=== PATIENT | male | born 1955 | race Caucasian/White ===

== ENCOUNTER 2020-08-15 16:08 | Outpatient (CLI) | payer MEDICARE, SELFPAY ==
[2020-08-15 17:06] LABS: Influenza Control Valid (Valid); SARS-CoV-2 Ag Negative (Negative)
== END 2020-08-15 16:09 | disposition home or self-care (01) ==
LOC: CHSLAB 16:12
PROVIDERS: PCP Internal Medicine; Visit Provider Internal Medicine
DX: R51.9 Headache, unspecified (principal); R68.83 Chills (without fever); R53.83 Other fatigue; Z20.828 Contact with and (suspected) exposure to other viral communicable diseases
CPT/HCPCS: 87426; 87804

== ENCOUNTER 2020-08-16 14:12 | Outpatient (CLI) | payer MEDICARE, SELFPAY ==
--- NOTE | ~2020-08-16 | XR_ITS ---
EXAMINATION: XR chest 2V DATE: 08/16/2020 14:38 INDICATION: Chills, headache, fever, dyspnea. TECHNIQUE: Frontal and lateral views of the chest were obtained. COMPARISON: Chest 2 views 09/08/2016 FINDINGS: Scattered calcified pulmonary nodules and calcified hilar and mediastinal lymph nodes are c onsistent with old granulomatous disease. There is linear scarring in anterior segment right upper lo be. No pleural effusion or pneumothorax. The heart size is normal. There are surgical clips in the ab domen. IMPRESSION: 1. Stable mild scarring at right lung. Reviewed, dictated and finalized at location A. [employer]
[2020-08-16 14:33] LABS: Basophils Absolute Auto 0.02 K/mm3 (0.00-0.10); Basophils Percent Auto 0.3 % (0.0-1.0); Eosinophils Percent Auto 2.6 % (1.0-6.0); Hematocrit 43.9 % (40.0-54.0); Hemoglobin 14.3 g/dL (14.0-18.0); Immature Granulocyte Absolute 0.04 K/mm3 (0.00-0.00); Immature Granulocyte Percent A 0.5 % (0.0-0.0); Lymphocytes Absolute Auto 1.06 K/mm3 (1.10-4.50); Lymphocytes Percent Auto 13.9 % (18.0-42.0); Mean Corpuscular HGB Conc 32.6 g/dL (32.0-36.0); Mean Corpuscular Hemoglobin 30.2 pg (27.0-31.0); Mean Corpuscular Volume 92.8 fL (78.0-102.0); Mean Platelet Volume 9.5 fl (8.7-11.0); Monocytes Absolute Auto 0.41 K/mm3 (0.10-0.90); Monocytes Percent Auto 5.4 % (2.0-11.0); Neutrophils Absolute Auto 5.9 K/mm3 (1.7-7.2); Neutrophils Percent Auto 77.3 % (50.0-70.0); Platelet Count Result 242 K/mm3 (150-420); Red Blood Count 4.73 M/mm3 (4.70-6.10); Red Cell Distribution Width 12.9 % (11.6-14.4); White Blood Count 7.6 K/mm3 (4.8-10.8)
[2020-08-16 14:39] LABS: Add Urine Microscopic? NO; Appearance Urine Clear (Clear); Bilirubin Urine Negative (Negative); Blood Urine Negative (Negative); Color Urine Yellow (Yellow); Glucose Urine UA Negative (Negative); Ketones Urine Negative (Negative); Leukocyte Esterase Ur Negative (Negative); Nitrate Urine Negative (Negative); Protein Urine Negative (Negative); Urobilinogen Urine 0.2 mg/dL (0.2-1.0)
[2020-08-16 15:06] LABS: Alanine Aminotransferase 34 U/L (16-63); Albumin Level 3.7 g/dL (3.4-5.0); Alkaline Phosphatase 63 U/L (46-116); Anion Gap 9 mmol/L (8-16); Aspartate Amino Transferase 15 U/L (15-37); Bilirubin,Total 0.2 mg/dL (0.00-1.00); Blood Urea Nitrogen 18 mg/dL (7-18); Calcium 9.4 mg/dL (8.5-10.1); Carbon Dioxide 28 mmol/L (21-32); Chloride 107 mmol/L (98-108); Estimated Glomerular Filt Rate 51; Glucose 110 mg/dL (70-99); Osmolality Calculated 300 mOsm/kg (285-295); Prostate Specific Antigen 2.2 ng/mL (< OR = 4.0); Sodium 144 mmol/L (136-145); Total Protein 6.9 g/dL (6.4-8.2)
== END 2020-08-16 14:13 | disposition home or self-care (01) ==
PROVIDERS: PCP Internal Medicine; Visit Provider Internal Medicine
DX: R50.9 Fever, unspecified (principal); R51.9 Headache, unspecified; R30.0 Dysuria; N42.9 Disorder of prostate, unspecified
CPT/HCPCS: 36415; 71046; 80053; 81003; 84153; 85025; 87086

== ENCOUNTER 2024-04-06 09:43 | Outpatient (CLI) | payer MEDICARE, SELFPAY ==
--- NOTE | ~2024-04-06 | XR_ITS ---
XR ankle LT min 3V Ordering provider: Denis Best MD History: . LEFT ANKLE PAIN, DYSPNEA . Comparison: November 09, 2006 FINDINGS: BONES: No acute fracture or dislocation. Calcaneus spur. Ossification of the insertion of the tendo Achilles. JOINT SPACES: The ankle mortise is normal. SOFT TISSUES: Soft tissue swelling over the lateral malleolus. IMPRESSION: No acute osseous abnormality left ankle. Reviewed, dictated and finalized at location A.
--- NOTE | ~2024-04-06 | XR_ITS ---
XR chest 2V 04/06/2024 10:18 Indication: Dyspnea Procedure: 2 view chest Comparison: Comparison to multiple prior studies sequentially, with oldest reviewed study dated 05/2013. Findings: Cardiomegaly. No focal air space disease, pulmonary edema, pleural effusion or suspected pn eumothorax. No acute osseous abnormality. Impression: 1: No acute cardiopulmonary disease. Reviewed, dictated and finalized at location B. Impression: 1: No acute cardiopulmonary disease.
== END 2024-04-06 09:44 | disposition home or self-care (01) ==
PROVIDERS: PCP Internal Medicine; Visit Provider Internal Medicine
DX: R06.00 Dyspnea, unspecified (principal); M25.572 Pain in left ankle and joints of left foot
CPT/HCPCS: 71046; 73610

== ENCOUNTER 2024-04-11 10:33 | Outpatient (RCR) | payer MEDICARE, SELFPAY ==
--- NOTE | 2024-04-11 11:34 | OPREHPOC ---
Outpatient Therapy Plan of Care This is a Multidisciplinary Plan of Care that may contain components documented by all disciplines (PT, OT, and ST.) PT Problem 1 PT Problem #1 Knowledge Deficit PT Goal 1 Goal 1. independent and compliant with HEP Target Visit 6 PT Problem 2 PT Problem #2 Impaired Endurance PT Goal 1 Goal 1. patient to complete 6 minute walk test without sitting rest Target Visit 12 PT Problem 3 PT Problem #3 Impaired Functional Mobil PT Goal 1 Goal 1. patient to ambulate 600ft or more in 6 minute walk test 2. patient to complete 2 minute step tap test for 50 steps or better 3. patient to complete 10 minutes on bike without stopping to rest 4. oswestry to display less than 40% functional deficits Target Visit 12
--- NOTE | 2024-04-11 11:34 | PTOPEVAL1 ---
Assessment and note entered by JT File, PT Evaluation Information Assessment Status Evaluation Diagnosis generalized deconditioning ICD-10 Condition Codes (PT) Pain in low back M54.50,Weakness R53.1 Onset 04/06/24 Subjective Information patient reports he is running out of energy and air when he is up and moving. he reports he cannot walk far. he reports he has had no falls. he reports he does have pain in the lower back after being up for a while. he reports he feels he is only able to make is 100-150ft prior to running out of air. he reports he has been declining in function for the past 3-4 months. he reports he is gradually getting worse. he reports he is going to have an EKG soon. he reports he does have a history of sarcoidosis in the past. he reports he is not very active daily. he reports his mobility for the day depends on how he feels in the morning . Reported Pain Level Pain Score 5: Self Report Assessment PT Clinical Summary mr. wong is a 68 yo man who presents to skilled PT services for evaluation of generalized deconditioning and chronic lower back pain. patient is obese and presents today with deficits in endurance. he is limited to under 2 minutes of walking prior to needing sitting rest due to RPE. continued skilled PT is indicated to improve patients endurance and functional activity performance to provide improved robert and better quality of life/functional activity performance. Plan of Care Interventions Gait Training,Neuro Re-education,Patient/Caregiver Educati,Therapeutic Activities,Therapeutic Exercise PT Services Indicated Yes Treatment Frequency and 3x weekly for 12 visits Duration These treatments will address the objective and functional deficits as defined above. The patient will be advanced safely and appropriately in order for the patient to progress towards his/her prior level of function. Additional exercises will be introduced and as well as a comprehensive home exercise program upon discharge, if needed, ?to ensure carryover of functional gains achieved in the clinic. This treatment plan has been reviewed and agreement upon by the patient.
--- NOTE | 2024-05-10 11:44 | OPREHPOC ---
Outpatient Therapy Plan of Care This is a Multidisciplinary Plan of Care that may contain components documented by all disciplines (PT, OT, and ST.) PT Problem 1 PT Problem #1 Knowledge Deficit PT Goal 1 Goal / Goal Update 1. independent and compliant with HEP Target Visit 6 Progress Met PT Problem 2 PT Problem #2 Impaired Endurance PT Goal 1 Goal / Goal Update 1. patient to complete 6 minute walk test without sitting rest Target Visit 12 Progress Not Met PT Problem 3 PT Problem #3 Impaired Functional Mobil PT Goal 1 Goal / Goal Update 1. patient to ambulate 600ft or more in 6 minute walk test 2. patient to complete 2 minute step tap test for 50 steps or better. met 3. patient to complete 10 minutes on bike without stopping to rest. met 4. oswestry to display less than 40% functional deficits Target Visit 12 Progress Partially Met
--- NOTE | 2024-05-10 11:45 | PTOPPROGNS ---
Assessment and note entered by JT File, PT Evaluation Information Assessment Status Progress Diagnosis generalized deconditioning ICD-10 Condition Codes (PT) Pain in low back M54.50,Weakness R53.1 Onset 04/06/24 Subjective Information patient reports he feels Alright today. he reports he had a stress test yesterday, but reports he did not finish and has to finish his stress test tomorrow. patient reports he does feel he is improved since starting therapy. Assessment PT Clinical Summary mr. wong presents to skilled PT services for his 10th skilled PT visit today. he displays continued deficits in endurance. however, he has show some improvements in ambulation distance/time and step test time. continued skilled PT is indicated to further work on achievement of goals for patient to become more engaged and functional at home and in the community. Plan of Care Interventions Gait Training,Neuro Re-education,Patient/Caregiver Educati,Therapeutic Activities,Therapeutic Exercise PT Services Indicated Yes Treatment Frequency and continue skilled PT per initial POC Duration These treatments will address the objective and functional deficits as defined above. The patient will be advanced safely and appropriately in order for the patient to progress towards his/her prior level of function. Additional exercises will be introduced and as well as a comprehensive home exercise program upon discharge, if needed, ?to ensure carryover of functional gains achieved in the clinic. This treatment plan has been reviewed and agreement upon by the patient.
--- NOTE | 2024-05-13 10:46 | OPREHPOC ---
Outpatient Therapy Plan of Care This is a Multidisciplinary Plan of Care that may contain components documented by all disciplines (PT, OT, and ST.) PT Problem 1 PT Problem #1 Knowledge Deficit PT Goal 1 Goal / Goal Update 1. independent and compliant with HEP Target Visit 6 Progress Met PT Problem 2 PT Problem #2 Impaired Endurance PT Goal 1 Goal / Goal Update 1. patient to complete 6 minute walk test without sitting rest Target Visit 12 Progress Not Met PT Problem 3 PT Problem #3 Impaired Functional Mobil PT Goal 1 Goal / Goal Update 1. patient to ambulate 600ft or more in 6 minute walk test. not met 2. patient to complete 2 minute step tap test for 50 steps or better. met 3. patient to complete 10 minutes on bike without stopping to rest. met 4. oswestry to display less than 40% functional deficits Target Visit 12 Progress Partially Met
--- NOTE | 2024-05-13 10:46 | PTOPDC ---
Assessment and note entered by JT File, PT Evaluation Information Assessment Status Discharge Diagnosis generalized deconditioning ICD-10 Condition Codes (PT) Pain in low back M54.50,Weakness R53.1 Onset 04/06/24 Subjective Information patient reports he has finished his stress testing this week, and reports he is all good. he reports he has no pain today. he reports he still has difficulty walking. he reports he is limited due to SOA when walking. he reports he is better that he was prior to starting therapy, but is still limited. 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 he reports he is not currently walking for exercise at this time. he reports he does believe he can begin walking for the goal of exercise at home. he reports he currently does perform activities at home in short bouts of standing, walking, and sitting. he reports he is fine with his current status, and believes he can continue on his own at home at this time. Reported Pain Level Pain Score 0: Self Report Assessment PT Clinical Summary mr. wong presents to skilled PT today for his 12th skilled PT visit. he presents with continued deficits in ambulation endurance, but displays achievement of goals for step test and bike exercise. he reports feeling good with his current status, and wanting to continue on his own at this time. he was educated in progression of walking for exercise at home, and will be DC'd from skilled PT today. Plan of Care PT Services Indicated Yes
== END 2024-05-13 10:15 | disposition home or self-care (01) ==
LOC: CHSPT 10:33
PROVIDERS: PCP Internal Medicine; Visit Provider Internal Medicine
DX: M54.50 Low back pain, unspecified (principal); R53.1 Weakness
CPT/HCPCS: 97110; 97161; 97530

== ENCOUNTER 2024-04-28 11:55 | Outpatient (CLI) | payer MEDICARE, SELFPAY ==
--- NOTE | 2024-04-28 12:01 | ECHO_ITS ---
Patient Info Name: Zechariah Jenkins Age: 68 years : 1955 Gender: Male Ht: 67 in Wt: 350 lbs BSA: 2.84 m2 HR: 75 bpm BP: 159 / 75 mmHg Heart Rhythm: Sinus Rhythm Technical Quality: Poor Exam Date: 04/28/2024 12:12 PM Exam Location: Echo Lab Patient Status: Outpatient Admit Date: 04/28/2024 Staff Ordering Physician: Denis Best MD Immigration Specialist: Jaimie Espinal RDCS Attending Provider: Denis Best MD Referring Physician: Nasir ESPARZA; Exam Type: CA echo dop color flow w con Study Info Indications - CHF Complete two-dimensional, color flow and Doppler transthoracic echocardiogram is performed with contrast to opacify the left ventricle and to improve the deliniation of the left ventricle endocardial borders. Reason for Poor Study: poor echocardiographic windows Summary 1. Definity contrast administered improved wall motion interpretation. 2. Left ventricular chamber dimension is normal. 3. Left ventricular systolic function is normal, estimated at 60-65%. 4. There is mild concentric increased left ventricular wall thickness. 5. The left ventricular diastolic function is grade III diastolic dysfunction. 6. E/e' 13 is mildly elevated. 7. There is trace tricuspid valve regurgitation. 8. No pulmonary hypertension, estimated pulmonary arterial systolic pressure is 13 mmHg. Left Ventricle E/e' 13 is mildly elevated. Definity contrast administered improved wall motion interpretation. Left ventricular chamber dimension is normal. Left ventricular systolic function is normal, estimated at 60-65%. There is mild concentric increased left ventricular wall thickness. The left ventricular diastolic function is grade III diastolic dysfunction. Right Ventricle Right ventricular systolic function is normal and with normal TAPSE 3.3 cm. Right ventricular chamber dimension is normal. Left Atria Left atrial chamber dimension is normal. Right Atria Right atrial chamber dimension is normal. Aortic Valve The aortic valve is not well visualized. Cannot determine number of aortic valve leaflets. There is no aortic valve stenosis. There is no aortic valve regurgitation. Pulmonic Valve There is no pulmonic regurgitation. Mitral Valve There is no mitral valve stenosis. There is no mitral valve regurgitation. Tricuspid Valve There is trace tricuspid valve regurgitation. No pulmonary hypertension, estimated pulmonary arterial systolic pressure is 13 mmHg. Pericardium/Pleural There is no pericardial effusion. Inferior Vena Cava Normal inferior vena cava with >50% collapse upon inspiration consistent with normal right atrial pressure, 5 mmHg. Aorta The aortic root size at the sinus of Valsalva is normal. Left Ventricular Outflow Tract Name Value Normal LVOT 2D LVOT Diameter 2.24 cm LVOT Doppler LVOT Peak Velocity 136.91 cm/s LVOT Peak Gradient 7 mmHg LVOT Mean Gradient 5 mmHg LVOT VTI 29.34 cm LVOT VTI/AV VTI Ratio 0.97 LVOT Stroke Volume 115.44 ml Pulmonic Valve
== END 2024-04-28 11:56 | disposition home or self-care (01) ==
LOC: CHSIMG 11:58
PROVIDERS: PCP Internal Medicine; Visit Provider Internal Medicine
DX: I50.9 Heart failure, unspecified (principal)
CPT/HCPCS: C8929

== ENCOUNTER 2024-05-09 09:01 | Outpatient (CLI) | payer MEDICARE, SELFPAY ==
--- NOTE | 2024-05-09 09:06 | EST_ITS ---
Patient Info Name: Zechariah Jenkins Age: 68 years : 1955 Gender: Male Ht: 66 in Wt: 358 lbs BSA: 2.85 m2 HR: 63 bpm BP: 108 / 61 mmHg Heart Rhythm: Sinus Rhythm Technical Quality: Good Exam Date: 05/09/2024 10:41 AM Exam Location: Echo Lab Patient Status: Outpatient Admit Date: 05/09/2024 Staff Ordering Physician: Denis Best MD Attending Provider: Denis Best MD Exam Type: CA stress lizzette w NM Study Info A regadenoson stress test was performed. History/Risk Factors Hypertension: Yes Obesity: Yes Summary 1. 1. Negative lexiscan stress test for ischemic ST changes by ECG criteria. 2. 2. Stable hemodynamics throughout the test. 3. 3. Nuclear scan to follow and will be reported separately. Please correlate with it. Protocol: LEXISCAN Stress ECG Details Stage: REST Duration (min): 1 min : 38 sec HR (bpm): 64 SBP (mmHg): --- DBP (mmHg): --- Stage: REST Duration (min): 5 min : 43 sec HR (bpm): 63 SBP (mmHg): --- DBP (mmHg): --- Stage: STAGE 1 Duration (min): 0 min : 52 sec HR (bpm): 78 SBP (mmHg): --- DBP (mmHg): --- Stage: RECOVERY Duration (min): 0 min : 7 sec HR (bpm): 84 SBP (mmHg): --- DBP (mmHg): --- Stage: RECOVERY Duration (min): 1 min : 7 sec HR (bpm): 92 SBP (mmHg): --- DBP (mmHg): --- Stage: RECOVERY Duration (min): 2 min : 7 sec HR (bpm): 90 SBP (mmHg): 142 DBP (mmHg): 70 Stage: RECOVERY Duration (min): 3 min : 7 sec HR (bpm): 88 SBP (mmHg): 138 DBP (mmHg): 64 Stage: RECOVERY Duration (min): 4 min : 7 sec HR (bpm): 85 SBP (mmHg): 132 DBP (mmHg): 56 Stage: RECOVERY Duration (min): 5 min : 7 sec HR (bpm): 84 SBP (mmHg): 124 DBP (mmHg): 71 Stage: RECOVERY Duration (min): 6 min : 7 sec HR (bpm): 84 SBP (mmHg): 119 DBP (mmHg): 69 Stage: RECOVERY Duration (min): 6 min : 21 sec HR (bpm): 83 SBP (mmHg): 119 DBP (mmHg): 69 Rest HR: 63 bpm Peak HR: 96 bpm Rest Sys BP: 130 mmHg Peak Sys BP: 142 mmHg Max Pred HR: 152 bpm % Max Pred HR: 63 % Target HR: 129 bpm Max RPP: 13,632 bpm*mmHg BP Response: Normal blood pressure response Termination Reason: Completed Protocol Cardiac Symptoms: rt sided jaw pain Total Time: 0 min : 52 sec Rest Garcia BP: 72 mmHg Peak Garcia BP: 70 mmHg Total Dose: 0.4 mg Resting ECG Sinus rhythm, anteroseptal infarct, age indeterminate. Stress ECG No abnormal ST/T wave changes. Arrhythmias Occasional PVCs. Report Signatures
--- NOTE | 2024-05-12 08:00 | WPDCARIOSTRE ---
Nuclear Stress Test INDICATIONS Indications: Dyspnea PROCEDURE Procedure Performed: Myocardial Perf Spect-Multi Procedure: Patient underwent a lexiscan stress test and immediately was injected with 30 mCi of cardiolyte. Multiple tomographic images were obtained. These are of fair quality. There is evidence of a large size, severe anterior and large size, severe inferior perfusion defects with stress imaging. A separate resting study on a different day was performed after patient was injected with 29.0 mCi of cardiolyte. Multiple tomographic images were obtained. These are of fair quality. There is evidence of a large size, severe anterior and large size, severe inferior perfusion defects with rest imaging. CONCLUSION Conclusion: 1. Myocardial perfusion imaging demonstrates a fixed large anterior and inferior perfusion defects with stress and rest imaging suggestive of breast and diaphragmatic attenuation artifacts. 2. No evidence of reversible ischemia. 3. Left ventriculogram demonstrates normal measured ejection fraction of 63% with no wall motion abnormalities. 4. TID score 1.03 is normal.
== END 2024-05-09 09:02 | disposition home or self-care (01) ==
PROVIDERS: PCP Internal Medicine; Visit Provider Internal Medicine
DX: I10 Essential (primary) hypertension (principal); R06.00 Dyspnea, unspecified
CPT/HCPCS: 78452; 93017; A9502; J2785

== ENCOUNTER 2024-07-27 09:07 | Outpatient (CLI) | payer MEDICARE, SELFPAY ==
[2024-07-27] VITALS (8 sets, daily range): PULSE 66–90; O2SAT 95–97
--- NOTE | 2024-07-27 10:35 | SIXMINWLK ---
Six Minute Walk Test PFT: Six Minute Walk Start: 07/27/24 10:25 Freq: Status: Active Protocol: RPE Activity Type Activity Date Activity User E-sign Co-sign Detail Recorded Client Recorded Date Recorded By Document 07/27/24 09:18 RES [id number] 07/27/24 10:29 RES Document 07/27/24 09:20 RES [id number] 07/27/24 10:29 RES Document 07/27/24 09:21 RES [id number] 07/27/24 10:34 RES Document 07/27/24 09:22 RES [id number] 07/27/24 10:34 RES Document 07/27/24 09:23 RES [id number] 07/27/24 10:34 RES Document 07/27/24 09:24 RES [id number] 07/27/24 10:34 RES Document 07/27/24 09:25 RES [id number] 07/27/24 10:34 RES Document 07/27/24 09:26 RES [id number] 07/27/24 10:34 RES 07/27/24 07/27/24 07/27/24 09:18 09:20 09:21 Six Minute Walk Gender M M M Age 68 68 68 Race White White White Test Phase Resting Exercise Exercise Oxygen Delivery Room Air Room Air Room Air Fraction of Inspired Oxygen (%) 21 21 21 Pulse Oximetry (90-100 %) 96 97 97 Pulse Rate (60-100 beats/min) 66 72 78 Activity Tolerance Good Good Good Rating of Perceived Dyspnea (PD) +1 Mild, +1 Mild, +1 Mild, Noticeable to Noticeable to Noticeable to the Participant the Participant the Participant but Not to an but Not to an but Not to an Observer Observer Observer Rate of Perceived Exertion (1) Very Light (2-3) Light (4-6) Moderate Activity Activity Activity Number of Complete Laps (1 Lap = 100 4 Feet) Total Distance Walked (Feet) 400 Total Distance Walked (Meters) 121.91 Stopped/Paused During Testing - Enter Yes Comment if Yes Symptoms at End of Test Leg/Hip Pain Other Symptoms At End of Test Patient had to stop a few times for about 30 sec. due to leg pain/ weakness 07/27/24 07/27/24 07/27/24 09:22 09:23 09:24 Six Minute Walk Gender M M M Age [age] Race White White White Test Phase Exercise Exercise Exercise Oxygen Delivery Room Air Room Air Room Air Fraction of Inspired Oxygen (%) 21 21 21 Pulse Oximetry (90-100 %) 95 95 96 Pulse Rate (60-100 beats/min) 90 88 80 Activity Tolerance Fair Fair Fair Rating of Perceived Dyspnea (PD) +3 Moderate +3 Moderate +3 Moderate Difficulty, But Difficulty, But Difficulty, But Can Continue Can Continue Can Continue Rate of Perceived Exertion (4-6) Moderate (4-6) Moderate (4-6) Moderate Activity Activity Activity Number of Complete Laps (1 Lap = 100 Feet) Total Distance Walked (Feet) Total Distance Walked (Meters) Stopped/Paused During Testing - Enter Comment if Yes Symptoms at End of Test Other Symptoms At End of Test 07/27/24 07/27/24 09:25 09:26 Six Minute Walk Gender M M Age [age] Race White White Test Phase Exercise Resting Oxygen Delivery Room Air Room Air Fraction of Inspired Oxygen (%) 21 21 Pulse Oximetry (90-100 %) 96 97 Pulse Rate (60-100 beats/min) 87 80 Activity Tolerance Fair Good Rating of Perceived Dyspnea (PD) +3 Moderate +1 Mild, Difficulty, But Noticeable to Can Continue the Participant but Not to an Observer Rate of Perceived Exertion (4-6) Moderate (1) Very Light Activity Activity Number of Complete Laps (1 Lap = 100 Feet) Total Distance Walked (Feet) Total Distance Walked (Meters) Stopped/Paused During Testing - Enter Comment if Yes Symptoms at End of Test Other Symptoms At End of Test
--- NOTE | 2024-07-27 19:58 | WPDSIXMINUTE ---
Six Minute Walk Procedure Procedure Performed Pulmonary Stress Test (6 min walk) Six Minute Walk Six Minute Walk: DATE OF SERVICE: 07/27/2024 REQUESTING: Amilcar Moarn APRN REASON FOR TESTING: Dyspnea on exertion SIX MINUTE WALK This test was conducted per ATS guidelines. The test was conducted while the patient was breathing room air. The initial saturation was 96%, and initial heart rate was 66 beats per minute. The patient walked with 2 short episodes to rest for a total of 30 seconds due to left hip pain. He completed 121.9 meters/400 feet. The saturation at the end of testing was 96%, and the heart rate was 87 beats per minute. The patient was moderately dyspneic at the end of the test. IMPRESSION: This is a normal study. The patient did not require supplemental oxygen with exertion. Distance walked is less than expected for age. Doris Burdick MD
--- NOTE | 2024-07-27 20:09 | WPDPFTINT ---
PFT Interpretation DOS: 07/27/2024 REQUESTING: Amilcar Moran APRN REASON FOR TESTING: Dyspnea on exertion PULMONARY FUNCTION TESTS Results are reliable and reproducible. Repeatability of spirometry FEV1 maneuver pre and post bronchodilator is Grade A. Spirometry: The pre-bronchodilator FEV1 is 1.77 L, 70%. The pre-bronchodilator FVC is 2.56 L, 78%. The FEV1/FVC ratio is 69%. After bronchodilator, the FEV1 is 1.67 L, 66%, -6%. The post bronchodilator FVC is 2.37 L, 72%, -8%. The post-bronchodilator FEV1/FVC ratio is 70%. Lung volumes: The total lung capacity is 5.04 L, 94%. The residual volume is 2.48 L, 114%. The RV/TLC is 49%. Airway resistance is normal. Diffusion: DLCO is 32.9, 110%. The DLCO/VA is 7.04, 194%. Flow volume loop: The flow volume loop shows mild coving of the expiratory limb. IMPRESSION: Normal spirometry without response to bronchodilator, normal lung volumes, normal diffusion. There are no prior studies for comparison. Doris Burdick MD
== END 2024-07-27 09:08 | disposition home or self-care (01) ==
PROVIDERS: PCP Internal Medicine; Visit Provider Nurse Practitioner Family
DX: R06.09 Other forms of dyspnea (principal)
CPT/HCPCS: 94060; 94726; 94729

== ENCOUNTER 2025-01-14 16:17 | Emergency (ER) | payer MEDICARE, SELFPAY ==
--- NOTE | ~2025-01-14 | XR_ITS ---
EXAMINATION: XR chest 2V Exam Date/Time: 01/14/2025 17:20 CDT HISTORY: SOB Comparison: 04/06/2024, 08/16/2020. RESULT: Lines, tubes, and devices: None. Lungs and pleura: Subsegmental consolidation in the right upper lobe, associated with discoid atelec tasis and scar. Right medial basilar atelectasis/scar and likely prominent pericardial fat pad. Granu lomatous calcifications. Cardiomediastinal silhouette: Stable. Calcified nodes. Other: No acute osseous or upper abdominal finding. IMPRESSION: Subsegmental atelectasis/consolidation in the right upper lobe. Reviewed, dictated and finalized at location K.
[2025-01-14 16:32] VITALS: BP 175/87; PULSE 68; RESP 18; O2SAT 100
[2025-01-14 16:36] VITALS: TEMP 36.8
--- OUTSIDE RECORDS SUMMARY | 2025-01-14 16:45 | XMS_ITS ---
Author Organization [facility] Reason for Referral No Reasons for Referral Entered Social History Social History Observation Description Start Date End Date Code Code System Current Smoking Status Tobacco smoking consumption unknown [id number] SNOMED CT Sex Assigned At Male 1955 90050-8 LOINC
--- OUTSIDE RECORDS SUMMARY | 2025-01-14 16:45 | XMS_ITS | Continuity of Care Document ---
Author Organization [facility] Address [address] [place] [address] [facility] [address] [place] [address] Phone Care Team Providers Care Division Sales Manager Name Role Phone Lauraaba Mckinley Unavailable Unavailable Procedures Procedure Date Office/outpatient Visit, [facility] Advance Directives Directive Yes / No Effective Date File Name No Information Encounters Encounter Description Practice Location Reason(s) For Visit Diagnoses Date Provider Providers Copied on Encounter Office/outpat ient Visit, [facility], [address] [place] [address] [address], [place], [place], [id number], tel:[phone] [facility] No Information [phone] Carline Mckinley. [address] [facility] [address], [place], [address], [place]. tel:[phone] Family History Family Member Type Diagnosis Age At Onset No Information Payers Payer name Insurance type Covered green party ID Authoriza tiayana(s) César Alejandro [id number] Social History Type Description Quantity Date Captured [...]
--- OUTSIDE RECORDS SUMMARY | 2025-01-14 16:45 | XMS_ITS | Clinical Summary ---
Author Organization [facility] Address [address] [place] [address] Care Team Providers Care Pullman Conductor Name Role Phone Unavailable Primary Care Provider Unavailabl e Social History Tobacco Use Types Packs/Day Years Used Date Smoking Tobacco: Never Sex and Gender Information Value Date Recorded Sex Assigned at Not on file Legal Sex Male 12:55 AM CDT Gender Identity Not on file Sexual Orientation Not on file Last Filed Vital Signs Vital Sign Reading Time Taken Comments Blood Pressure 147/89 04/16/2012 10:11 AM CDT Pulse 58 04/16/2012 10:10 AM CDT Temperature - - Respiratory Rate 18 04/16/2012 10:10 AM CDT Oxygen Saturation - - Inhaled Oxygen Concentration - - Weight 126.6 kg (279 lb) 04/16/2012 10:10 AM CDT Height 170.2 cm (5' 7 ) 04/16/2012 10:10 AM CDT Body Mass Index 43.7 04/16/2012 10:10 AM CDT Plan of Treatment Health Maintenance Due Date Last Done Comments Colorectal Cancer Screening Colonoscopy (10 Years) 1955 Hepatitis C 12/13/1973 DTaP, Tdap and Td Vaccines ( 1 - Tdap) 12/13/1974 Pneumococcal Vaccine: 50+ Ye ars (1 of 1 - PCV) 12/13/2005 Zoster Vaccines (1 of 2) 12/13/2005 COVID-19 Vaccine ( - 2023-2 5 season) 2024 RSV Immunization or 60+ Years (1 - 1-dose 75+ series) 12/13/2030 Meningococcal B Vaccine Aged Out No l onger eligible based on patient's age to complete this topic Meningococcal Vaccine Aged Out No fahad vanita eligible based on patient's age to complete this topic RSV Immunizations Under 20 Months Aged Out No longer eligible based on patient's age to complete this topic
--- OUTSIDE RECORDS SUMMARY | 2025-01-14 16:45 | XMS_ITS | Clinical Summary ---
Author Organization [facility] Address [address] [place] [address] Care Team Providers Care Steamer Gum Candy Name Role Phone Unavailable Primary Care Provider Unavailabl e Source Comments [facility],non-owned Affiliates and Associated Physician Practices is amultiple site organization consisting of ambulatory clinics and hospital sitesin [place], [place], [place] and [place]. This disclosure is being madepursuant to the Care Everywhere program and may not contain all information available regarding this patient. 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 Gender Identity Not on file Sexual Orientation Not on file Plan of Treatment Health Maintenance Due Date Last Done Comments COLOGUARD (AGES 45-75) - COL ON CA SCREENING 1955 COLON MONITORING 1955 COLONOSCOPY - COLON CA SCREENING 1955 CT COLONOGRAPHY - COLON CA SCREENING 1955 Colorectal Cancer Screening 1955 FIT - COLON CA SCREENING 1955 FLEX SIG - COLON CA SCREENING 1955 LIPID TESTING 1955 HEPATITIS C SCREENING 12/09/1973 DTAP/TDAP/TD VACCINES (1 - Tdap) 12/13/1974 PNEUMOCOCCAL VACCINE 50+ (1 of 1 - PCV) 12/13/2005 ZOSTER VACCINE (1 of 2) 12/13/2005 COVID-19 VACCINE ( - 2023-2 5 season) 2024 DEPRESSION SCREENING 09/14/2024 INFLUENZA VACCINE (Season Ended) 2025 Respiratory Syncytial Virus (RSV) Vaccine Pt: or over 60 yrs (1 - 1-dose 75+ series) 12/13/2030 HEPATITIS B VACCINE Aged Out No longe r eligible based on patient's age to complete this topic HIB VACCINE Aged Out No longer eligi ble based on patient's age to complete this topic HPV VACCINE Aged Out No longer eligi ble based on patient's age to complete this topic MENINGOCOCCAL (Group B) VACC INE SHARED DECISION-MAKING Aged Out No longer eligibl e based on patient's age to complete this topic MENINGOCOCCAL GROUPS A/C/Y/W VACCINE Aged Out No longer eligible b ased on patient's age to complete this topic Insurance [employer] PA[employer]OR GENERIC * Guarantor: [id number] Account Type Relation to Patient Date of Phone Billing Address Workers Comp Employer [employer] [address] [place] [address] PAYOR GENERIC
--- NOTE | 2025-01-14 16:50 | ED.GENADULT ---
HPI - General Adult General Chief complaint: Shortness of Breath/Dyspnea Stated complaint: cant breathe Time Seen by Provider: 01/14/25 16:47 History of Present Illness HPI narrative: 69-year-old male presented to the emergency department for evaluation for cough congestion wheezing and shortness of breath that is been worsening over the last few days. Patient does not use oxygen at home. Patient does have history of sarcoidosis. Does sleep with a CPAP at nighttime Related Data Home Medications ?Medication ?Instructions ?Recorded ?Confirmed ?Last Taken ?Type allopurinol 100 mg tablet 100 mg PO BID 04/18/21 07/22/24 Unknown History carvedilol 25 mg tablet 25 mg PO Q12H 04/18/21 07/22/24 Unknown History lovastatin 10 mg tablet 10 mg PO QPM 04/18/21 07/22/24 Unknown History hydralazine 100 mg tablet 100 mg PO BID 07/22/24 07/22/24 Unknown History Allergies Allergy/AdvReac Type Severity Reaction Status Date / Time No Known Allergies Allergy Mild Verified 07/22/24 10:08 Review of Systems Review of Systems: All systems reviewed & are unremarkable except as noted in HPI and below PMFSH Past Medical History Medical History CKD (chronic kidney disease) Essential tremor GERD (gastroesophageal reflux disease) HTN (hypertension) Hyperuricemia Impaired fasting glucose Sarcoidosis Dx in his 40's, was on prednisone for 18 months and this improved. In remission. Sciatica Family History Family History Father Malignant neoplasm of prostate Lung cancer Mother Diabetes mellitus Heart disease Social History Social History Smoking status: Never smoker Alcohol use details: 2 beers/week Substance use: never Living arrangements: with family Exam Narrative: APPEARANCE: Well appearing, no pain, no distress, well-nourished. HEAD: normocephalic, atraumatic. EYES: PERRLA/EOMI, conjunctivae clear. NOSE: Normal no drainage EARS:TMS clear with good light reflex. THROAT: Pharynx clear, no exudate. NECK: Supple. No adenopathy, no masses. RESPIRATORY: Minimal wheeze on expiration CARDIOVASCULAR: Regular rate and rhythm without murmurs rubs or gallops. ABDOMINAL: Soft, nontender, nondistended, normal bowel sounds MUSCULOSKELETAL: Moves all extremities. Strength/ROM intact, No edema, No calf tenderness. NEURO: Alert. Cranial nerves II through XII intact. Good gait. Good coordination SKIN: Warm, dry. Normal Color Course Vital Signs Vital signs: Vital Signs Pulse Rate 68 01/14/25 16:32 Respiratory Rate 18 01/14/25 16:32 Blood Pressure 175/87 H 01/14/25 16:32 Pulse Oximetry 100 01/14/25 16:32 Oxygen Delivery Room Air 01/14/25 16:32 Temperature 98 F 01/14/25 19:30 Pulse Rate 76 01/14/25 19:30 Respiratory Rate 20 01/14/25 19:30 Blood Pressure 157/84 H 01/14/25 19:30 Pulse Oximetry 95 01/14/25 19:30 Oxygen Delivery Room Air 01/14/25 17:33 Fraction of Inspired Oxygen 21 01/14/25 17:33 Medical Decision Making [facility] Narrative Medical decision making narrative: 69-year-old male presented to the emergency department for evaluation for cough congestion wheeze and shortness of breath. Patient is currently afebrile with no leukocytosis and hemoglobin of 13.7. Patient has no significant cute abnormalities to his CMP patient was negative for influenza and COVID was positive for RSV. Chest x-ray shows no acute evidence of pneumonia. Patient did feel improved after breathing treatment. Patient was able to ambulate in the emergency department with a stable pulse ox. Patient does prefer to be discharged home. Patient was provided a fever on [facility] Tessalon Perles for symptom control. Patient family were educated on reasons to return to the emergency department Differential Diagnosis Differential Diagnosis: COVID, RSV, influenza, pneumonia, sarcoidosis, pneumothorax Vital Signs Vital Signs: Vital Signs Pulse Rate 68 01/14/25 16:32 Respiratory Rate 18 01/14/25 16:32 Blood Pressure 175/87 H 01/14/25 16:32 Pulse Oximetry 100 01/14/25 16:32 Oxygen Delivery Room Air 01/14/25 16:32 Temperature 98 F 01/14/25 19:30 Pulse Rate 76 01/14/25 19:30 Respiratory Rate 20 01/14/25 19:30 Blood Pressure 157/84 H 01/14/25 19:30 Pulse Oximetry 95 01/14/25 19:30 Oxygen Delivery Room Air 01/14/25 17:33 Fraction of Inspired Oxygen 21 01/14/25 17:33 Lab Data Lab results reviewed: Yes I reviewed the patient's lab results. 01/14/25 17:16 01/14/25 17:16 Labs: Lab Results 01/14/25 01/14/25 Range/Units 17:16 17:37 WBC 6.2 (4.5-10.0) K/mm3 RBC 4.67 (4.6-6.20) M/mm3 Hgb 13.7 L (14.0-18.0) g/dL Hct 43.6 (42.0-52.0) % MCV 93.4 (80-100) fl MCH 29.3 (26-34) pg MCHC 31.4 L (32-36) g/dl RDW 13.6 (11.5-14.5) % Plt Count 173 (150-375) k/mm3 MPV 9.1 (7.4-10.4) fl Immature Gran % (Auto) 0.8 H (0-0.5) % Neut % (Auto) 75.5 H (45.5-73.1) % Lymph % (Auto) 9.7 L (18.3-44.2) % Canyon % (Auto) 10.3 H (2.6-8.5) % Eos % (Auto) 3.4 (0-4.4) % Baso % (Auto) 0.3 (0.2-1.2) % Lymph # (Auto) 0.60 L (0.9-3.2) K/mm3 Canyon # (Auto) 0.6 (0.1-0.6) K/mm3 Eos # (Auto) 0.2 (0-0.3) K/mm3 Baso # (Auto) 0.0 (0.0-0.1) K/mm3 Abs Immat Gran (auto) 0.05 H (0.00-0.031) K/mm3 Absolute Neuts (auto) 4.7 (1.3-6.7) K/mm3 Absolute Nucleated RBC 0.000 (0.0-0.012) K/mm3 Nucleated RBC % 0.0 (0.0-0.2) % Sodium 139 (137-145) mmol/L Potassium 4.0 (3.4-5.0) mmol/L Chloride 105 (98-107) mmol/L Carbon Dioxide 29 (22-30) mmol/L Anion Gap 5 (4-12) mmol/L BUN 18 (9-20) mg/dL Creatinine 1.35 H (0.7-1.3) mg/dL Estim Creat Clear Calc 65 ml/min Estimated GFR 52 L (59 - ) Glucose 96 (65-110) mg/dL Calcium 9.2 (8.4-10.2) mg/dL Total Bilirubin 0.5 (0.2-1.3) mg/dL AST 21 (17-59) U/L ALT 28 (6-50) U/L Alkaline Phosphatase 57 (38-126) U/L Total Protein 7.0 (6.3-8.2) g/dL Albumin 3.9 (3.5-5.1) g/dL Influenza A (RT-PCR) Negative (Negative) Influenza B (RT-PCR) Negative (Negative) RSV (RT-PCR) Positive A (Negative) SARS-CoV-2 RNA (RT-PCR) Negative (Negative) Imaging Data Radiologist's impression: Impressions Chest X-Ray 01/14/25 18:23 IMPRESSION: Subsegmental atelectasis/consolidation in the right upper lobe. Discharge Plan Discharge Clinical Impression: RSV infection Patient Disposition: Home Condition: Stable Instructions: Antibiotic Form, RSV (Respiratory Syncytial Virus) Infection (ED) Additional Instructions: Albuterol inhaler with spacer for shortness of breath. Tessalon Perles for cough. Have close follow-up with your primary care physician. If you have any worsening symptoms then please call or return to the emergency department. Patient Language: Azerbaijani Prescriptions: New benzonatate 100 mg capsule 100 mg PO TID PRN (Reason: cough) Qty: 14 0RF albuterol sulfate 90 mcg/actuation HFA aerosol inhaler 1 puff inhalation QID Qty: 6.7 0RF No Action hydralazine 100 mg tablet 100 mg PO BID allopurinol 100 mg tablet 100 mg PO BID lovastatin 10 mg tablet 10 mg PO QPM carvedilol 25 mg tablet 25 mg PO Q12H Rx Instructions: must administer with a meal/food Men's 50 Plus Multivitamin 400-20-370 mcg tablet 1 tablet PO DAILY Qty: 1 0RF Follow-up/Referrals: Denis Best MD [Primary Care Provider] -
[2025-01-14 17:21] LABS: Basophils Percent Auto 0.3 % (0.2-1.2); Eosinophils Absolute Auto 0.2 K/mm3 (0-0.3); Eosinophils Percent Auto 3.4 % (0-4.4); Hematocrit 43.6 % (42.0-52.0); Hemoglobin 13.7 g/dL (14.0-18.0); Immature Granulocyte Absolute 0.05 K/mm3 (0.00-0.031); Immature Granulocyte Percent A 0.8 % (0-0.5); Lymphocytes Percent Auto 9.7 % (18.3-44.2); Mean Corpuscular HGB Conc 31.4 g/dl (32-36); Mean Corpuscular Hemoglobin 29.3 pg (26-34); Mean Corpuscular Volume 93.4 fl (80-100); Mean Platelet Volume 9.1 fl (7.4-10.4); Monocytes Absolute Auto 0.6 K/mm3 (0.1-0.6); Monocytes Percent Auto 10.3 % (2.6-8.5); Neutrophils Absolute Auto 4.7 K/mm3 (1.3-6.7); Neutrophils Percent Auto 75.5 % (45.5-73.1); Platelet Count Result 173 k/mm3 (150-375); Red Blood Count 4.67 M/mm3 (4.6-6.20); Red Cell Distribution Width 13.6 % (11.5-14.5); White Blood Count 6.2 K/mm3 (4.5-10.0)
--- OUTSIDE RECORDS SUMMARY | 2025-01-14 17:21 | XMS_ITS ---
Author Organization [facility] [place] Reason for Referral No Reasons for Referral Entered Social History Social History Observation Description Start Date End Date Code Code System Current Smoking Status Tobacco smoking consumption unknown [id number] SNOMED CT Sex Assigned At Male 1955 15004-8 LOINC
--- OUTSIDE RECORDS SUMMARY | 2025-01-14 17:21 | XMS_ITS | Clinical Summary ---
Author Organization [facility] Address [address] [place] [address] Care Team Providers Care Cake Batter Mixer Name Role Phone Unavailable Primary Care Provider [...]
--- OUTSIDE RECORDS SUMMARY | 2025-01-14 17:21 | XMS_ITS | Clinical Summary ---
Author Organization [facility] Address [address] [place] [address] Care Team Providers Care Coal Deliverer Name Role Phone Unavailable Primary Care Provider Unavailabl e Source Comments [facility],non-owned Affiliates and Associated Physician Practices is amultiple site organization consisting of ambulatory clinics and hospital sitesin [place], [place], [place] and [place]. This disclosure is being madepursuant to the Care Everywhere program and may not contain all information available regarding this patient. 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
--- OUTSIDE RECORDS SUMMARY | 2025-01-14 17:21 | XMS_ITS | Continuity of Care Document ---
Author Organization [facility] Address [address] [place] [address] [facility] [address] [place] [address] Phone Care Team Providers Care Teacher'S Assistant Name Role Phone Lauraaba Mckinley Unavailable Unavailable Procedures Procedure Date Office/outpatient Visit, [facility] Advance Directives Directive Yes / No Effective Date File Name No Information Encounters Encounter Description Practice Location Reason(s) For Visit Diagnoses Date Provider Providers Copied on Encounter Office/outpat ient Visit, [facility], [address] [place] [address] [address], [place], [place], [id number], tel:[phone] [facility] No Information 3-201 0 Carline Mckinley. [address] [employer] [facility] [address], [place], [address], [place]. tel:[phone] Family History Family Member Type Diagnosis Age At Onset No Information Payers Payer name Insurance type Covered green party ID Authoriza tiayana(s) César Alejandro [id number] Social History Type Description Quantity Date Captured [...]
[2025-01-14 17:31] LABS: Alanine Aminotransferase 28 U/L (6-50); Albumin Level 3.9 g/dL (3.5-5.1); Alkaline Phosphatase 57 U/L (38-126); Anion Gap 5 mmol/L (4-12); Aspartate Amino Transferase 21 U/L (17-59); Bilirubin,Total 0.5 mg/dL (0.2-1.3); Blood Urea Nitrogen 18 mg/dL (9-20); Calcium 9.2 mg/dL (8.4-10.2); Carbon Dioxide 29 mmol/L (22-30); Chloride 105 mmol/L (98-107); Estimated CRCL calculation 65 ml/min; Estimated Glomerular Filt Rate 52; Glucose 96 mg/dL (65-110); Sodium 139 mmol/L (137-145)
[2025-01-14 17:33] VITALS: PULSE 69; RESP 20; O2SAT 96
[2025-01-14] MEDS: ALBUTEROL SULFATE NEB 2.5 MG/3 ML INH 5 MG INHALATION (17:33)
--- NOTE | 2025-01-14 17:38 | PC.NURSE ---
RT at bedside
[2025-01-14 17:44] VITALS: PULSE 66; RESP 20
[2025-01-14 18:18] LABS: Influenza A QL RT-PCR Negative (Negative); Influenza B QL RT-PCR Negative (Negative); RSV RNA, RT-PCR Positive (Negative); SARS-CoV-2 RNA PCR Negative (Negative)
[2025-01-14 18:20] VITALS: BP 162/79; PULSE 72; RESP 18; O2SAT 96
--- NOTE | 2025-01-14 18:40 | PC.NURSE ---
Patient appears to be breathing a bit more comfortably after breathing treatment, patient agrees. Resting on stretcher in NAD. Ambulatory w steady gait to BR. Remains on full monitor, VS as charted. Call light in reach with family at bedside.
--- NOTE | 2025-01-14 19:11 | PC.NURSE ---
Ambulatory pulse ox taken by ED PCT. RA SPO2 94-93%. aware.
[2025-01-14 19:30] VITALS: BP 157/84; PULSE 76; RESP 20; TEMP 36.6; O2SAT 95
== END 2025-01-14 19:31 | disposition home or self-care (01) ==
PROVIDERS: Emergency Provider Emergency Medicine; PCP Internal Medicine
DX: R05.9 Cough, unspecified (principal); B97.4 Respiratory syncytial virus as the cause of diseases classified elsewhere; N18.9 Chronic kidney disease, unspecified; K21.9 Gastro-esophageal reflux disease without esophagitis; I12.9 Hypertensive chronic kidney disease with stage 1 through stage 4 chronic kidney disease, or unspecified chronic kidney disease; Z20.822 Contact with and (suspected) exposure to COVID-19
CPT/HCPCS: 36415; 71046; 80053; 85025; 87637; 94640; 94664; 99284

== ENCOUNTER 2025-01-16 15:24 | Inpatient (IN) | payer MEDICARE, SELFPAY ==
[2025-01-16] VITALS (19 sets, daily range): BP systolic 104–177; BP diastolic 56–97; PULSE 72–85; RESP 16–20; TEMP 36.6–37.1; O2SAT 91–98; BMI 54.3
--- NOTE | ~2025-01-16 | XR_ITS ---
XR chest 1V portable Ordering provider: Gabriel Smith MD History: 69 years Male with . Dyspnea . Comparison: January 14, 2025 FINDINGS: MEDIASTINUM: The cardiac silhouette is moderately enlarged. Congestive alisa. LUNGS: No effusions or pneumothorax. Bilateral interstitial thickening. Minimal opacification in the right upper lobe which is slightly improved. OTHER: No free air under the diaphragm. IMPRESSION: Cardiomegaly with cardiac decompensation and pulmonary edema. Pneumonitis is not excluded. Right upper lobe pneumonia slightly improved. Reviewed, dictated and finalized at location A. IMPRESSION: Cardiomegaly with cardiac decompensation and pulmonary edema. Pneumonitis is no t excluded. Right upper lobe pneumonia slightly improved.
--- NOTE | 2025-01-16 15:33 | ED.GENADULT ---
HPI - General Adult General Chief complaint: Upper Respiratory Infection Stated complaint: RSV, Pneumonia Time Seen by Provider: 01/16/25 15:33 Source: patient Mode of arrival: ambulatory Limitations: no limitations History of Present Illness HPI narrative: 69 years old white male referred to our emergency room by his family physician office today because of shortness of breath. Patient tested positive for RSV 2 days ago at [facility] and was discharged home at that day. History of CKD, sent showed tremors, GERD, hypertension, hyperuricemia, sarcoidosis, impaired fasting glucose, patient on CPAP at night. Patient denies history of smoking Related Data Home Medications ?Medication ?Instructions ?Recorded ?Confirmed ?Last Taken ?Type allopurinol 100 mg tablet 100 mg PO BID 04/18/21 07/22/24 Unknown History carvedilol 25 mg tablet 25 mg PO Q12H 04/18/21 07/22/24 Unknown History lovastatin 10 mg tablet 10 mg PO QPM 04/18/21 07/22/24 Unknown History hydralazine 100 mg tablet 100 mg PO BID 07/22/24 07/22/24 Unknown History Allergies Allergy/AdvReac Type Severity Reaction Status Date / Time No Known Allergies Allergy Mild Verified 01/16/25 15:31 [facility] Past Medical History Medical History CKD (chronic kidney disease) Essential tremor GERD (gastroesophageal reflux disease) HTN (hypertension) Hyperuricemia Impaired fasting glucose Sarcoidosis Dx in his 40's, was on prednisone for 18 months and this improved. In remission. Sciatica Family History Family History Father Malignant neoplasm of prostate Lung cancer Mother Diabetes mellitus Heart disease Social History Social History Smoking status: Never smoker Alcohol use details: 2 beers/week Substance use: never Living arrangements: with family Course Vital Signs Vital signs: Vital Signs Pulse Oximetry 92 01/16/25 15:24 Oxygen Delivery Room Air 01/16/25 15:24 Temperature 37.1 C 01/16/25 15:30 Pulse Rate 77 01/16/25 15:30 Respiratory Rate 20 01/16/25 15:30 Blood Pressure 107/77 01/16/25 15:30 Pulse Oximetry 92 01/16/25 15:30 Oxygen Delivery Room Air 01/16/25 15:30 Medical Decision Making [facility] Narrative Medical decision making narrative: patient presents with shortness of breath and coughing started few days ago, tested positive for RSV January 14 at [facility] Vital signs are stable Physical examination showing widespread rhonchi and wheezing bilaterally Differential diagnosis include viral pneumonitis, flare up of sarcoidosis, bronchospasm, pneumonia, dehydration, electrolyte imbalance. Blood workup today includes CBC, CMP, troponin, blood culture, lactic acid, CRP showed creatinine 1.4 which is consistent with previous reading, proBNP 337, otherwise within normal limit Chest x-ray showed cardiomegaly with possible pulmonary edema, pneumonitis is not excluded, right upper lobe pneumonia slightly improved EKG on arrival showed normal sinus rhythm at 75 beats per minute, incomplete right bundle-branch block, borderline EKG Diagnosis: Viral pneumonitis, questionable bacterial pneumonia, bronchospasm, questionable CHF, history of sarcoidosis. Admit to hospitalist Differential Diagnosis Differential Diagnosis: as above Vital Signs Vital Signs: Vital Signs Pulse Oximetry 92 01/16/25 15:24 Oxygen Delivery Room Air 01/16/25 15:24 Temperature 37.1 C 01/16/25 15:30 Pulse Rate 77 01/16/25 15:30 Respiratory Rate 20 01/16/25 15:30 Blood Pressure 107/77 01/16/25 15:30 Pulse Oximetry 92 01/16/25 15:30 Oxygen Delivery Room Air 01/16/25 15:30 Lab Data 01/16/25 15:55 01/16/25 15:55 Labs: Lab Results 01/16/25 Range/Units 15:55 WBC 5.8 (4.8-10.8) K/mm3 RBC 4.95 (4.70-6.10) M/mm3 Hgb 14.6 (12.4-15.3) g/dL Hct 45.0 (37.0-46.0) % MCV 90.9 (78.0-102.0) fL MCH 29.5 (27.0-31.0) pg MCHC 32.4 (32-36) g/dL RDW 13.3 (11.6-14.4) % Plt Count 203 (150-420) K/mm3 MPV 9.2 (8.7-11.0) fl Immature Gran % (Auto) 0.9 H (0.0-0.0) % Neut % (Auto) 80.4 H (50.0-70.0) % Lymph % (Auto) 8.7 L (18.0-42.0) % [place] % (Auto) 8.1 (2.0-11.0) % Eos % (Auto) 1.6 (1.0-6.0) % Baso % (Auto) 0.3 (0.0-1.0) % Lymph # (Auto) 0.50 L (1.10-4.50) K/mm3 [place] # (Auto) 0.47 (0.10-0.90) K/mm3 Eos # (Auto) 0.09 (0.02-0.50) K/mm3 Baso # (Auto) 0.02 (0.00-0.10) K/mm3 Abs Immat Gran (auto) 0.05 H (0.00-0.00) K/mm3 Absolute Neuts (auto) 4.64 (1.70-7.20) K/mm3 Absolute Nucleated RBC 0.00 (0.00-0.00) K/mm3 Nucleated RBC % 0.0 (0-0.0) % PT 10.8 (9.50-12.1) Seconds INR 1.0 APTT 33.5 H (23.9-30.70) Sec Sodium 139 (136-145) mmol/L Potassium 3.9 (3.5-5.1) mmol/L Chloride 100 (98-108) mmol/L Carbon Dioxide 31 (21-32) mmol/L Anion Gap 8 (4-12) mmol/L BUN 14 (7-18) mg/dL Creatinine 1.44 H (0.70-1.30) mg/dL Estim Creat Clear Calc 62 ml/min Estimated GFR 49 L (59 - ) Glucose 97 (70-99) mg/dL Calculated Osmolality 288 (285-295) mOsm/kg Lactic Acid 1.1 (0.4-2.0) mmol/L Calcium 9.5 (8.5-10.1) mg/dL Magnesium 2.0 (1.8-2.4) mg/dL Total Bilirubin 0.6 (0.00-1.00) mg/dL AST 15 (15-37) U/L ALT 33 (16-63) U/L Alkaline Phosphatase 61 (46-116) U/L Troponin I 8.6 (0.00-60.4) ng/L NT-Pro-B Natriuret Pep 337 H (0-125) pg/mL Total Protein 7.2 (6.4-8.2) g/dL Albumin 3.7 (3.4-5.0) g/dL Influenza A (RT-PCR) Pending Influenza B (RT-PCR) Pending RSV (RT-PCR) Pending SARS-CoV-2 RNA (RT-PCR) Pending Imaging Data Radiologist's impression: Impressions Chest X-Ray 01/16/25 16:05 IMPRESSION: Cardiomegaly with cardiac decompensation and pulmonary edema. Pneumonitis is not excluded. Right upper lobe pneumonia slightly improved. ECG Data EKG #1: ECG completion date: 01/16/25 ECG completion time: 17:09 Interpretation: normal sinus rhythm at 75 beats per minute, incomplete right bundle-branch block, poor R-wave progression, septal myocardial infarction of indeterminate age, no old EKG available for comparison Critical Care Time Critical Care Time Critical Care Time: No Discharge Plan Discharge Clinical Impression: Viral pneumonitis, Pneumonia, History of sarcoidosis, CHF (congestive heart failure) Patient Disposition: Still a Patient Condition: Stable
--- NOTE | 2025-01-16 15:36 | ECG_ITS ---
Test Date: 2025-01-16 16:06:02 Measurements Intervals [place] Rate: 75 P: 69 HI: 173 QRS: 81 QRSD: 106 T: 69 QT: 372 QTc: 417 Interpretive Statements SINUS RHYTHM INCOMPLETE RIGHT BUNDLE BRANCH BLOCK [90+ ms QRS DURATION, TERMINAL R IN V1/V2, 40+ ms S IN I/aVL/V4/V5/V6] No previous ECG available for comparison Electronically Signed On 01-17-2025 14:12:18 CDT by Lakshmi Nguyen M.D.
[2025-01-16 16:01] LABS: Basophils Absolute Auto 0.02 K/mm3 (0.00-0.10); Basophils Percent Auto 0.3 % (0.0-1.0); Eosinophils Absolute Auto 0.09 K/mm3 (0.02-0.50); Eosinophils Percent Auto 1.6 % (1.0-6.0); Hemoglobin 14.6 g/dL (12.4-15.3); Immature Granulocyte Absolute 0.05 K/mm3 (0.00-0.00); Immature Granulocyte Percent A 0.9 % (0.0-0.0); Lymphocytes Percent Auto 8.7 % (18.0-42.0); Mean Corpuscular HGB Conc 32.4 g/dL (32-36); Mean Corpuscular Hemoglobin 29.5 pg (27.0-31.0); Mean Corpuscular Volume 90.9 fL (78.0-102.0); Mean Platelet Volume 9.2 fl (8.7-11.0); Monocytes Absolute Auto 0.47 K/mm3 (0.10-0.90); Monocytes Percent Auto 8.1 % (2.0-11.0); Neutrophils Absolute Auto 4.64 K/mm3 (1.70-7.20); Neutrophils Percent Auto 80.4 % (50.0-70.0); Platelet Count Result 203 K/mm3 (150-420); Red Blood Count 4.95 M/mm3 (4.70-6.10); Red Cell Distribution Width 13.3 % (11.6-14.4); White Blood Count 5.8 K/mm3 (4.8-10.8)
--- OUTSIDE RECORDS SUMMARY | 2025-01-16 16:07 | XMS_ITS | Clinical Summary ---
Author Organization [facility] Address Critical access hospital[address] [place] [address] Care Team Providers Care Imaging Tech Name Role Phone Unavailable Primary Care Provider [...]
--- OUTSIDE RECORDS SUMMARY | 2025-01-16 16:07 | XMS_ITS | Continuity of Care Document ---
Author Organization [facility] Address [address] [place] [address] [facility] [address] [place] [address] Phone Care Team Providers Care Color Checker Name Role Phone Lauraaba Mckinley Unavailable Unavailable Procedures Procedure Date Office/outpatient Visit, [facility] Advance Directives Directive Yes / No Effective Date File Name No Information Encounters Encounter Description Practice Location Reason(s) For Visit Diagnoses Date Provider Providers Copied on Encounter Office/outpat ient Visit, [facility], [address] [place] [address] [address], [place], [place], [id number], tel:[phone] [facility] No Information [phone] Carline Mckinley. [address] [facility] [address], [place], [address], [place]. tel:[phone] Family History Family Member Type Diagnosis Age At Onset No Information Payers Payer name Insurance type Covered constitution party ID Authoriza tiayana(s) César Alejandro [id number] Social History Type Description Quantity Date Captured [...]
--- OUTSIDE RECORDS SUMMARY | 2025-01-16 16:07 | XMS_ITS | Clinical Summary ---
Author Organization [facility] Address [address] [place] [address] Care Team Providers Care High Risk Ob Name Role Phone Unavailable Primary Care Provider Unavailabl e Source Comments [facility],non-owned Affiliates and Associated Physician Practices is amultiple site organization consisting of ambulatory clinics and hospital sitesin [place], [place], [place] and [place]. This disclosure is being madepursuant to the Care Everywhere program and may not contain all information available regarding this patient. Last updated 18.[facility] Active Problems Problem Noted Date Diagnosed Date DDD (degenerative disc disease), lumbar 10/08/19 17 Social History Tobacco Use Types Packs/Day Years Used Date Smoking Tobacco: Never Assessed Sex and Gender Information Value Date Recorded Sex Assigned at Not on file Legal Sex Male 3:19 PM [employer] Gender Identity Not on file Sexual Orientation [...] topic Insurance [employer] * Guarantor: [id number] Account Type Relation to Patient Date of Phone Billing Address Workers Comp Employer [employer] [address] [place] [address] PA[employer] GENERIC
[2025-01-16 16:21] LABS: Partial Thromboplastin Time 33.5 Sec (23.9-30.70); Prothrombin Time 10.8 Seconds (9.50-12.1)
[2025-01-16 16:23] LABS: Lactic Acid Reflex 1.1 mmol/L (0.4-2.0)
[2025-01-16 16:25] LABS: Alanine Aminotransferase 33 U/L (16-63); Albumin Level 3.7 g/dL (3.4-5.0); Alkaline Phosphatase 61 U/L (46-116); Anion Gap 8 mmol/L (4-12); Aspartate Amino Transferase 15 U/L (15-37); Bilirubin,Total 0.6 mg/dL (0.00-1.00); Blood Urea Nitrogen 14 mg/dL (7-18); Calcium 9.5 mg/dL (8.5-10.1); Carbon Dioxide 31 mmol/L (21-32); Chloride 100 mmol/L (98-108); Estimated CRCL calculation 62 ml/min; Estimated Glomerular Filt Rate 49; Glucose 97 mg/dL (70-99); NT Pro B Type Natriuretic Pept 337 pg/mL (0-125); Osmolality Calculated 288 mOsm/kg (285-295); Potassium 3.9 mmol/L (3.5-5.1); Sodium 139 mmol/L (136-145); Total Protein 7.2 g/dL (6.4-8.2); Troponin I 8.6 ng/L (0.00-60.4)
[2025-01-16 16:39] LABS: Influenza A QL RT-PCR Negative (Negative); Influenza B QL RT-PCR Negative (Negative); RSV RNA, RT-PCR Positive (Negative); SARS-CoV-2 RNA PCR Negative (Negative)
--- OUTSIDE RECORDS SUMMARY | 2025-01-16 16:58 | XMS_ITS | Continuity of Care Document ---
Author Organization [facility] Address [address] [place] [address] [facility] [address] [place] [address] Phone Care Team Providers Care Shake Maker Name Role Phone Lauraaba Mckinley Unavailable Unavailable Procedures Procedure Date Office/outpatient Visit, [facility] Advance Directives Directive Yes / No Effective Date File Name No Information Encounters Encounter Description Practice Location Reason(s) For Visit Diagnoses Date Provider Providers Copied on Encounter Office/outpat ient Visit, [facility], [address] [place] [address] [address], [place], [place], [id number], tel:[phone] [facility] No Information [phone] Carline Mckinley. [address] [facility] [address], [address], [place]. tel:[phone] Family History Family Member Type Diagnosis Age At Onset No Information Payers Payer name Insurance type Covered alliance party ID Authoriza tiayana(s) César Alejandro [id number] Social History Type Description Quantity Date Captured [...]
--- OUTSIDE RECORDS SUMMARY | 2025-01-16 16:58 | XMS_ITS | Clinical Summary ---
Author Organization [facility] Address [address] [place] [address] Care Team Providers Care Industrial Chemist Name Role Phone Unavailable Primary Care Provider Unavailabl e Source Comments [facility],non-owned Affiliates and Associated Physician Practices is amultiple site organization consisting of ambulatory clinics and hospital sitesin [place], [place], [place] and [place]. This disclosure is being madepursuant to the Care Everywhere program and may not contain all information available regarding this patient. 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
--- OUTSIDE RECORDS SUMMARY | 2025-01-16 16:58 | XMS_ITS | Clinical Summary ---
Author Organization [facility] Address [facility] [place] [address] Care Team Providers Care Sanitation Worker Cleaning Equipment Name Role Phone Unavailable Primary Care Provider [...]
[2025-01-16] MEDS: IPRATROPIUM 0.5 MG/ALBUTEROL SULFATE 2.5 MG AMPUL.NEB 3 ML INHALATION (17:00)
[2025-01-16] MEDS: methylPREDNISolone SOD SUCC 125 MG VIAL IV PUSH (17:11)
[2025-01-16] MEDS: FUROSEMIDE 40 MG TABLET PO (17:20)
--- NOTE | 2025-01-16 17:35 | PC.NURSE ---
Patient arrived to unit in w/c from the ED. He was admitted to room 10 on telemetry. Nurse educated patient on use of call light, bed controls, visiting hours general policies, isolation policies, and activation of rapid response. Blue folder given to patient and family. Fall precautions explained to patient due to use of equipment including IV and O2. Patient able to transfer independently from w/c to bed.
[2025-01-16] MEDS: AZITHROMYCIN 500 MG/NS 250 ML 500 MG/250 ML BAG 250 MG IVPB (18:55)
[2025-01-16] MEDS: ALBUTEROL SULFATE NEB 2.5 MG/3 ML INH INHALATION ×2 (18:58→23:35)
[2025-01-16] MEDS: methylPREDNISolone SOD SUCC 125 MG VIAL 60 MG IV PUSH (21:34)
[2025-01-17] VITALS (14 sets, daily range): BP systolic 136–166; BP diastolic 49–82; PULSE 62–75; RESP 16–20; TEMP 36.1–36.4; O2SAT 92–98
[2025-01-17] MEDS: methylPREDNISolone SOD SUCC 125 MG VIAL 60 MG IV PUSH ×3 (05:14→21:02)
[2025-01-17] MEDS: ALBUTEROL SULFATE NEB 2.5 MG/3 ML INH INHALATION ×3 (05:35→17:06)
[2025-01-17] MEDS: hydrALAZINE HCL 25 MG TABLET 100 MG PO ×2 (08:29→17:21)
[2025-01-17] MEDS: allopurinoL 100 MG TABLET PO ×2 (08:29→17:22)
[2025-01-17] MEDS: carvediloL 12.5 MG TABLET 25 MG PO ×2 (08:30→20:41)
--- NOTE | 2025-01-17 08:37 | P.HP_ITS ---
H&P: HPI History of Present Illness Date/Time: 01/17/25 08:37 Chief Complaint: Dyspnea, acute hypoxia Narrative: This is a 69 year old male patient who is admitted to the hospital for increased difficulty breathing and decreased oxygen levels. He was just diagnosed with RSV and RUL pneumonia, treated as an outpatient. He went to see PCP yesterday for follow up and PCP sent to ER. Patient requiring oxygen application. CXR shows decompensated pulmonary edema/Cardiomegaly. Prior Echocardiogram in April 2024 showed Grade 3 diastolic dysfunction with normal EF%. Patient is on carvedilol and hydralazine for BP/CHF. He has CKD which may be why he is not on an KAREN/ARB. Patient uses CPAP at night for JESSEE. He also has a past medical history of sarcoidosis in his 40s but has been in remission. Patient reports he had difficulty breathing over the weekend and went to [place]. Then yesterday he went to PCP with continued/worsening breathing problems. No chest pain. No significant weight gain or peripheral edema. Review of Systems Review of Systems: All systems reviewed & are unremarkable except as noted in HPI and below PMFSH Past Medical History Medical History (Updated 01/17/25 @ 14:33 by Gerardo Marie APRN) Sarcoidosis Dx in his 40's, was on prednisone for 18 months and this improved. In remission. Impaired fasting glucose Hyperuricemia GERD (gastroesophageal reflux disease) Essential tremor CKD (chronic kidney disease) Sciatica HTN (hypertension) Family History Family History Father Malignant neoplasm of prostate Lung cancer Mother Diabetes mellitus Heart disease Social History Social History Smoking status: Never smoker Second hand tobacco smoke exposure: No Alcohol intake: former Alcohol use details: 2 beers/week Substance use: never Substance use type: does not use Do You Feel Safe in your Home?: Yes Lack of Transportation: No Lack of Food: Never True Current Housing: I Have Housing Concerned About Future Housing: No Difficulty Paying Gas/Electric Bills: No Difficulty Paying for Meds: No Currently Unemployed: No Education: High School Diploma/GED Difficulty w/ Childcare or Family Care: No Living arrangements: with family Spiritual care concerns: No Meds Home Medications and Allergies Home Medications ?Medication ?Instructions ?Recorded ?Confirmed ?Type allopurinol 100 mg tablet 100 mg PO BID 04/18/21 01/16/25 History carvedilol 25 mg tablet 25 mg PO Q12H 04/18/21 01/16/25 History lovastatin 10 mg tablet 10 mg PO QPM 04/18/21 01/16/25 History xrbmrpdrnbtb-uqs-ndouw acid-vit 1 tablet PO DAILY #1 tablet 04/18/21 01/16/25 Rx K-lycop 400 mcg-20 mcg-370 mcg tablet (Men's 50 Plus Multivitamin) hydralazine 100 mg tablet 100 mg PO BID 07/22/24 01/16/25 History albuterol sulfate 90 mcg/actuation 1 puff inhalation QID #6.7 grams 01/14/25 01/16/25 Rx aerosol inhaler benzonatate 100 mg capsule 100 mg PO TID PRN cough #14 caps 01/14/25 01/16/25 Rx Allergies Allergy/AdvReac Type Severity Reaction Status Date / Time No Known Allergies Allergy Mild Verified 01/16/25 15:31 Vital Signs Vital Signs - 24 hr 01/16/25 15:24 01/16/25 15:30 01/16/25 15:30 Temperature 37.1 C Pulse Rate 77 75 Respiratory Rate 20 16 Blood Pressure 107/77 104/77 Pulse Oximetry 92 92 91 Oxygen Delivery Room Air Room Air Oxygen Flow Rate 01/16/25 15:38 01/16/25 15:45 01/16/25 15:47 Temperature Pulse Rate 78 Respiratory Rate 17 Blood Pressure 177/89 H Pulse Oximetry 92 91 91 Oxygen Delivery Oxygen Flow Rate 01/16/25 16:00 01/16/25 16:15 01/16/25 16:30 Temperature Pulse Rate Respiratory Rate Blood Pressure Pulse Oximetry 93 93 92 Oxygen Delivery Oxygen Flow Rate 01/16/25 16:45 01/16/25 16:46 01/16/25 17:00 Temperature Pulse Rate 77 Respiratory Rate 16 Blood Pressure 154/73 H Pulse Oximetry 94 95 93 Oxygen Delivery Oxygen Flow Rate 01/16/25 17:01 01/16/25 17:15 01/16/25 17:16 Temperature Pulse Rate 72 75 Respiratory Rate 17 17 Blood Pressure 145/73 H 174/97 H Pulse Oximetry 98 95 98 Oxygen Delivery Nasal Cannula Nasal Cannula Oxygen Flow Rate 2 2 01/16/25 17:28 01/16/25 17:30 01/16/25 20:00 Temperature 37.1 C Pulse Rate 75 75 Respiratory Rate 17 17 Blood Pressure 174/97 H Pulse Oximetry 98 98 98 Oxygen Delivery Room Air Nasal Cannula Oxygen Flow Rate 2 2 01/16/25 20:00 01/16/25 20:00 01/16/25 23:30 Temperature 36.6 C Pulse Rate 85 81 81 Respiratory Rate 18 18 Blood Pressure 145/56 H Pulse Oximetry 92 92 Oxygen Delivery Nasal Cannula Oxygen Flow Rate 2 2 01/16/25 23:46 01/17/25 00:00 01/17/25 00:00 Temperature 36.4 C Pulse Rate 74 72 72 Respiratory Rate 18 18 Blood Pressure 136/49 L Pulse Oximetry 93 93 Oxygen Delivery Nasal Cannula Oxygen Flow Rate 2 2 01/17/25 04:00 01/17/25 04:00 01/17/25 05:35 Temperature 36.4 C L Pulse Rate 62 62 62 Respiratory Rate 18 18 Blood Pressure 155/82 H Pulse Oximetry 93 93 Oxygen Delivery Nasal Cannula Oxygen Flow Rate 2 2 01/17/25 05:44 01/17/25 08:00 01/17/25 08:00 Temperature 36.1 C L Pulse Rate 68 70 62 Respiratory Rate 18 18 Blood Pressure 149/65 H Pulse Oximetry 98 92 Oxygen Delivery Nasal Cannula Oxygen Flow Rate 2 2 01/17/25 08:30 Temperature Pulse Rate 62 Respiratory Rate Blood Pressure Pulse Oximetry Oxygen Delivery Oxygen Flow Rate Exam Narrative: APPEARANCE: Mildly ill appearing, mild dyspnea noted HEENT: PERRL, neck supple, no adenopathy RESPIRATORY: Minimal wheeze on expiration, mild dyspnea noted, supplemental oxygen 2 LPM CARDIOVASCULAR: Regular rate and rhythm without murmurs rubs or gallops. ABDOMINAL: Soft, nontender, nondistended, normal bowel sounds MUSCULOSKELETAL: Moves all extremities. Strength/ROM intact, No edema, No calf tenderness. NEURO: Alert and oriented, no focal neuro deficits noted SKIN: Warm, dry. Normal Color H&P: Results Labs Labs: Short CBC 01/16/25 Range/Units 15:55 WBC 5.8 (4.8-10.8) K/mm3 Hgb 14.6 (12.4-15.3) g/dL Hct 45.0 (37.0-46.0) % Plt Count 203 (150-420) K/mm3 BMP 05/05/25 15:55 Sodium 139 Potassium 3.9 Chloride 100 Carbon Dioxide 31 BUN 14 Creatinine 1.44 H Glucose 97 Calcium 9.5 Cardiac Enzymes 01/16/25 Range/Units 15:55 Troponin I 8.6 (0.00-60.4) ng/L Liver Function 01/16/25 Range/Units 15:55 Total Bilirubin 0.6 (0.00-1.00) mg/dL AST 15 (15-37) U/L ALT 33 (16-63) U/L Alkaline Phosphatase 61 (46-116) U/L Albumin 3.7 (3.4-5.0) g/dL Pulse Oximetry SpO2 results: 92% on 2 liters per minute by nasal cannula Attestation: I personally reviewed and interpreted this pulse oximetry as follows: Interpretation: Patient continues to require supplemental oxygen, CPAP at night ECG Attestation: I personally reviewed and interpreted this ECG as follows: ECG completion date: 01/16/25 ECG completion time: 16:06 Prior ECG tracings: not available for review Interpretation: sinus rhythm rate of 75 [place] 173 QRS duration 106 QTC 417 QRS axis 81 no STEMI Imaging Chest x-ray: Radiologist's impression: XR chest 1V portable Ordering provider: Gabriel Smith MD History: 69 years Male with . Dyspnea . Comparison: January 14, 2025 FINDINGS: MEDIASTINUM: The cardiac silhouette is moderately enlarged. Congestive alisa. LUNGS: No effusions or pneumothorax. Bilateral interstitial thickening. Minimal opacification in the right upper lobe which is slightly improved. OTHER: No free air under the diaphragm. IMPRESSION: Cardiomegaly with cardiac decompensation and pulmonary edema. Pneumonitis is not excluded. Right upper lobe pneumonia slightly improved. Reviewed, dictated and finalized at location A. Previous Chest x-ray: Radiologist's impression: EXAMINATION: XR chest 2V Exam Date/Time: 01/14/2025 17:20 CDT HISTORY: SOB Comparison: 04/06/2024, 08/16/2020. RESULT: Lines, tubes, and devices: None. Lungs and pleura: Subsegmental consolidation in the right upper lobe, associated with discoid atelectasis and scar. Right medial basilar atelectasis/scar and likely prominent pericardial fat pad. Granulomatous calcifications. Cardiomediastinal silhouette: Stable. Calcified nodes. Other: No acute osseous or upper abdominal finding. IMPRESSION: Subsegmental atelectasis/consolidation in the right upper lobe. Reviewed, dictated and finalized at location K. Assessment and Plan Assessment and plan (1) Acute hypoxic respiratory failure: Code(s): J96.01 - Acute respiratory failure with hypoxia Status: Acute Assessment and Plan: -Oxygen by nasal cannula, wean as tolerated -CPAP at night with oxygen bleed in to keep sats >90% -Q4H vitals -CXR with pulmonary edema and Cardiomegaly -Prior Echocardiogram showed Grade 3 diastolic HF with normal EF -BNP 337, will repeat on 01/18 with AM labs -Will need repeat Echo (as outpatient unless no improvement with diuresis then would need inpatient) -RSV and improving RUL pneumonia noted -History of sarcoidosis (2) CHF (congestive heart failure): Qualifiers: Heart failure chronicity: acute on chronic Heart failure type: diastolic Qualified Code(s): I50.33 - Acute on chronic diastolic (congestive) heart failure Code(s): I50.9 - Heart failure, unspecified Status: Acute Assessment and Plan: See above Acute on chronic diastolic congestive heart failure, possible systolic decompensation as well Echo ordered, unsure if can be done while admitted here (3) RSV infection: Qualifiers: RSV infection type: pneumonia Qualified Code(s): J12.1 - Respiratory syncytial virus pneumonia Code(s): B33.8 - Other specified viral diseases Status: Acute Assessment and Plan: See above (4) JESSEE (obstructive sleep apnea): Code(s): G47.33 - Obstructive sleep apnea (adult) (pediatric) Status: Acute Assessment and Plan: See above (5) History of sarcoidosis: Code(s): Z86.2 - Personal history of diseases of the blood and blood-forming organs and certain disorders involving the immune mechanism Status: Acute Assessment and Plan: -Previously noted in remission, possible flare contributing to acute hypoxic respiratory failure and CHF exacerbation (6) CKD (chronic kidney disease): Qualifiers: Chronic kidney disease stage: stage 3 (moderate) Chronic kidney disease stage 3 subtype: stage 3a (GFR 45-59) Qualified Code(s): N18.31 - Chronic kidney disease, stage 3a Code(s): N18.9 - Chronic kidney disease, unspecified Status: Acute Assessment and Plan: -Daily labs -Consider holding allopurinol if worsening renal function -Patient requires diuresis -Avoid further nephrotoxins as possible -SUMAN noted on labs 01/17/25--BUN 21, Cr 1.82, est CrCl 51, eGFR 37 (7) Pneumonia: Qualifiers: Laterality: right Lung location: upper lobe of lung Pneumonia type: due to unspecified organism Qualified Code(s): J18.9 - Pneumonia, unspecified organism Code(s): J18.9 - Pneumonia, unspecified organism Status: Acute Assessment and Plan: -RUL process improving -Continue IV Rocephin -Azithromycin changed to oral due to CHF exacerbation -MRSA negative -Legionella/Pneumococcal Ag ordered -Incentive spirometer ordered Q2H Plan -Admit on oxygen -Diuresis while monitoring renal function -RSV precautions -Continue treatment for possible bacterial pneumonia -Continue IV steroids for wheezing/sarcoidosis Quality VTE Prophylaxis VTE prophylaxis: pharmacologic ordered (Lovenox) Total time spent on admission 95 minutes Hospitalist [facility] Advance Care Plan I have confirmed that the patient's Advanced Care Plan is present, code status is documented, or surrogate decision maker is listed in patient medical record.: Yes Medication Reconciliation I have utilized all available resources to obtain, update and review the patients current medications (includes all prescriptions, OTC, herbals, cannabis, and nutritional supplements).: Yes
[2025-01-17] MEDS: ACETAMINOPHEN 325 MG TABLET 650 MG PO (10:31)
[2025-01-17] MEDS: FUROSEMIDE INJ 40 MG/4 ML VIAL IV PUSH (10:51)
[2025-01-17] MEDS: AZITHROMYCIN 250 MG TABLET 500 MG PO (13:30)
[2025-01-17 13:59] LABS: Basophils Absolute Auto 0.01 K/mm3 (0.00-0.10); Basophils Percent Auto 0.1 % (0.0-1.0); Hematocrit 44.6 % (37.0-46.0); Hemoglobin 14.6 g/dL (12.4-15.3); Immature Granulocyte Absolute 0.04 K/mm3 (0.00-0.00); Immature Granulocyte Percent A 0.6 % (0.0-0.0); Lymphocytes Absolute Auto 0.61 K/mm3 (1.10-4.50); Lymphocytes Percent Auto 8.8 % (18.0-42.0); Mean Corpuscular HGB Conc 32.7 g/dL (32-36); Mean Corpuscular Volume 88.5 fL (78.0-102.0); Mean Platelet Volume 8.9 fl (8.7-11.0); Monocytes Absolute Auto 0.23 K/mm3 (0.10-0.90); Monocytes Percent Auto 3.3 % (2.0-11.0); Neutrophils Absolute Auto 6.03 K/mm3 (1.70-7.20); Neutrophils Percent Auto 87.2 % (50.0-70.0); Platelet Count Result 221 K/mm3 (150-420); Red Blood Count 5.04 M/mm3 (4.70-6.10); Red Cell Distribution Width 13.1 % (11.6-14.4); White Blood Count 6.9 K/mm3 (4.8-10.8)
[2025-01-17 14:13] LABS: Albumin Level 3.7 g/dL (3.4-5.0); Anion Gap 11 mmol/L (4-12); Blood Urea Nitrogen 21 mg/dL (7-18); Calcium 9.7 mg/dL (8.5-10.1); Carbon Dioxide 29 mmol/L (21-32); Chloride 99 mmol/L (98-108); Estimated CRCL calculation 51 ml/min; Estimated Glomerular Filt Rate 37; Glucose 159 mg/dL (70-99); Osmolality Calculated 294 mOsm/kg (285-295); Phosphorus 3.3 mg/dL (2.6-4.7); Potassium 3.9 mmol/L (3.5-5.1); Sodium 139 mmol/L (136-145)
[2025-01-17 14:17] LABS: Hemoglobin A1C 5.5 % (<5.7)
--- NOTE | 2025-01-17 15:09 | PC.NURSE ---
Patient status changed from observation to inpatient.
[2025-01-17] MEDS: LOVASTATIN 10 MG TABLET PO (17:22)
[2025-01-18] VITALS (16 sets, daily range): BP systolic 129–162; BP diastolic 60–64; PULSE 54–75; RESP 14–20; TEMP 36.2–36.6; O2SAT 92–98
[2025-01-18] MEDS: ALBUTEROL SULFATE NEB 2.5 MG/3 ML INH INHALATION ×5 (00:05→23:46)
[2025-01-18 05:22] LABS: Basophils Absolute Auto 0.01 K/mm3 (0.00-0.10); Basophils Percent Auto 0.1 % (0.0-1.0); Hematocrit 45.9 % (37.0-46.0); Hemoglobin 14.6 g/dL (12.4-15.3); Immature Granulocyte Absolute 0.09 K/mm3 (0.00-0.00); Immature Granulocyte Percent A 0.8 % (0.0-0.0); Lymphocytes Absolute Auto 0.89 K/mm3 (1.10-4.50); Lymphocytes Percent Auto 7.9 % (18.0-42.0); Mean Corpuscular HGB Conc 31.8 g/dL (32-36); Mean Corpuscular Hemoglobin 28.8 pg (27.0-31.0); Mean Corpuscular Volume 90.5 fL (78.0-102.0); Mean Platelet Volume 9.5 fl (8.7-11.0); Monocytes Absolute Auto 0.35 K/mm3 (0.10-0.90); Monocytes Percent Auto 3.1 % (2.0-11.0); Neutrophils Absolute Auto 9.87 K/mm3 (1.70-7.20); Neutrophils Percent Auto 88.1 % (50.0-70.0); Platelet Count Result 245 K/mm3 (150-420); Red Blood Count 5.07 M/mm3 (4.70-6.10); Red Cell Distribution Width 13.2 % (11.6-14.4); White Blood Count 11.2 K/mm3 (4.8-10.8)
[2025-01-18] MEDS: methylPREDNISolone SOD SUCC 125 MG VIAL 60 MG IV PUSH (05:32)
[2025-01-18 05:47] LABS: Albumin Level 3.6 g/dL (3.4-5.0); Anion Gap 7 mmol/L (4-12); Blood Urea Nitrogen 26 mg/dL (7-18); Calcium 9.7 mg/dL (8.5-10.1); Carbon Dioxide 30 mmol/L (21-32); Chloride 104 mmol/L (98-108); Estimated CRCL calculation 57 ml/min; Estimated Glomerular Filt Rate 43; Glucose 149 mg/dL (70-99); Magnesium 2.3 mg/dL (1.8-2.4); NT Pro B Type Natriuretic Pept 225 pg/mL (0-125); Osmolality Calculated 299 mOsm/kg (285-295); Phosphorus 4.6 mg/dL (2.6-4.7); Potassium 4.1 mmol/L (3.5-5.1); Sodium 141 mmol/L (136-145)
[2025-01-18] MEDS: ENOXAPARIN 40 MG/0.4 ML SYRINGE SUB-Q (08:40)
[2025-01-18] MEDS: AZITHROMYCIN 250 MG TABLET 500 MG PO (08:47)
[2025-01-18] MEDS: hydrALAZINE HCL 25 MG TABLET 100 MG PO ×2 (08:47→17:55)
[2025-01-18] MEDS: carvediloL 12.5 MG TABLET 25 MG PO ×2 (08:48→20:02)
[2025-01-18] MEDS: allopurinoL 100 MG TABLET PO ×2 (08:48→17:55)
--- NOTE | 2025-01-18 10:39 | P.PNIM_ITS ---
Progress Note: A&P Assessment and Plan (1) Acute hypoxic respiratory failure: Code(s): J96.01 - Acute respiratory failure with hypoxia Status: Acute Assessment and Plan: patient admitted for acute respiratory failure with hypoxia secondary to RSV with history of sarcoidosis was requiring supplemental oxygen to maintain 92% was admitted for further supportive care and wean oxygen, CXR with pulmonary edema and Cardiomegaly, Prior Echocardiogram showed Grade 3 diastolic HF with normal EF -Oxygen by nasal cannula, wean as tolerated will monitor 24 hour off oxygen -CPAP at night with oxygen bleed in to keep sats >90% -F/u BNP 225 improved can due repeat echo outpatient - DuoNebs (2) CHF (congestive heart failure): Qualifiers: Heart failure chronicity: acute on chronic Heart failure type: diastolic Qualified Code(s): I50.33 - Acute on chronic diastolic (congestive) heart failure Code(s): I50.9 - Heart failure, unspecified Status: Acute Assessment and Plan: HX of grade 3 diastolic dysfunction mildly elevated BNP and chest x-ray showing pulmonary congestion, was given 40 mg IV Lasix x1. * transitioned to 20 mg p.o. 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 (3) RSV infection: Qualifiers: RSV infection type: pneumonia Qualified Code(s): J12.1 - Respiratory syncytial virus pneumonia Code(s): B33.8 - Other specified viral diseases Status: Acute Assessment and Plan: * Supportive care * acetaminophen for mild pain and fevers * incentive spirometer * antiemetics * encourage oral hydration (4) JESSEE (obstructive sleep apnea): Code(s): G47.33 - Obstructive sleep apnea (adult) (pediatric) Status: Acute Assessment and Plan: * Resume CPAP at night and with naps (5) History of sarcoidosis: Code(s): Z86.2 - Personal history of diseases of the blood and blood-forming organs and certain disorders involving the immune mechanism Status: Acute Assessment and Plan: -Previously noted in remission, possible flare contributing to acute hypoxic respiratory failure and CHF exacerbation * (6) CKD (chronic kidney disease): Qualifiers: Chronic kidney disease stage: stage 3 (moderate) Chronic kidney disease stage 3 subtype: stage 3a (GFR 45-59) Qualified Code(s): N18.31 - Chronic kidney disease, stage 3a Code(s): N18.9 - Chronic kidney disease, unspecified Status: Acute Assessment and Plan: patient with history of CKD 3 close to baseline, baseline Cr around 1.4-1.5 peaked at 1.82 on admission downtredning * nephrology consulted * Avoid nephrotoxic drugs. * Monitor antihypertensive drug therapy. * Avoid NSAIDs. * Routine CMP monitoring GFR. * Monitor electrolytes especially potassium. * if worsens will need to discontinue allopurinol (7) Pneumonia: Qualifiers: Laterality: right Lung location: upper lobe of lung Pneumonia type: due to unspecified organism Qualified Code(s): J18.9 - Pneumonia, unspecified organism Code(s): J18.9 - Pneumonia, unspecified organism Status: Acute Assessment and Plan: chest x-ray showing right upper lobe improving infiltrate -Continue IV Rocephin -Azithromycin changed to oral due to CHF exacerbation -MRSA negative -Legionella/Pneumococcal Ag ordered -Incentive spirometer ordered Q2H - duo nebs Plan Code status: Full code per patient DVT prophylaxis: Lovenox Stress ulcer prophylaxis: NA PT/OT notes: Patient ambulatory Disposition: patient continues admission to the medical unit for treatment of acute respiratory failure with hypoxia secondary to RSV possible CHF exacerbation patient was weaned to room air oxygen this a.m. but did wear his CPAP all night will continue with current treatment plan and monitor for 24 hours to ensure patient does not need oxygen at discharge. Time Spent With Patient Time with patient: 15 - 25 minutes Subjective Date/time seen: 01/18/25 10:39 Interval history: patient is a 69-year-old male admitted for further evaluation and treatment of acute respiratory failure with hypoxia secondary to RSV infection and possible CHF exacerbation Review of Systems Review of Systems: All systems reviewed & are unremarkable except as noted in HPI and below Exam Narrative: APPEARANCE: Mildly ill appearing obese male HEENT: PERRL, neck supple, no adenopathy RESPIRATORY: Minimal wheeze on expiration, mild dyspnea noted, supplemental oxygen has been wean to RA CARDIOVASCULAR: RRR ABDOMINAL: Soft, nontender MUSCULOSKELETAL: Moves all extremities. NEURO: Alert and oriented, SKIN: Warm, dry. Normal Color Objective Data Vital Signs Vital Signs: Vital Signs - 24 hr 01/17/25 12:55 01/17/25 13:05 01/17/25 16:00 Temperature 97.1 F L Pulse Rate 72 70 71 Respiratory Rate 20 20 16 Blood Pressure 166/70 H Pulse Oximetry 95 96 93 Oxygen Delivery Nasal Cannula Oxygen Flow Rate 2 2 01/17/25 17:06 01/17/25 17:14 01/17/25 20:00 Temperature Pulse Rate 70 75 75 Respiratory Rate 20 20 20 Blood Pressure Pulse Oximetry 93 98 93 Oxygen Delivery Nasal Cannula Oxygen Flow Rate 2 2 01/17/25 20:00 01/17/25 20:41 01/18/25 00:00 Temperature 97.1 F L Pulse Rate 72 72 Respiratory Rate 18 Blood Pressure 162/64 H Pulse Oximetry 93 95 Oxygen Delivery Nasal Cannula Nasal Cannula Oxygen Flow Rate 2 2 01/18/25 00:05 01/18/25 00:20 01/18/25 00:23 Temperature Pulse Rate 72 75 Respiratory Rate 20 20 Blood Pressure Pulse Oximetry 93 95 98 Oxygen Delivery Nasal Cannula Oxygen Flow Rate 2 0 2 01/18/25 05:36 01/18/25 05:48 01/18/25 08:48 Temperature Pulse Rate 65 68 68 Respiratory Rate 20 18 Blood Pressure Pulse Oximetry 92 98 Oxygen Delivery Oxygen Flow Rate Intake/Output Intake/Output: Intake & Output 01/15/25 01/16/25 01/17/25 01/18/25 23:59 23:59 23:59 23:59 Intake Total 450 3260 500 Output Total 350 2975 800 Balance 100 285 -300 Meds/Results Medications: Active Medications Generic Name Dose Route Start Last Admin Trade Name Freq PRN Reason Stop Dose Admin Acetaminophen 650 mg 01/16/25 16:44 01/17/25 10:31 Acetaminophen 325 Mg Tablet PO 650 mg Q4H PRN Administration Mild Pain (1-3) or Fever Albuterol 2.5 mg 01/16/25 17:02 Albuterol Sulfate Neb 2.5 Mg/3 Ml Inh INHALATION Q4HRT PRN Shortness Of Breath Albuterol 2.5 mg 01/16/25 18:30 01/18/25 05:36 Albuterol Sulfate Neb 2.5 Mg/3 Ml Inh INHALATION 2.5 mg Q6HRT SHAHAB Administration Allopurinol 100 mg 01/17/25 09:00 01/18/25 08:48 Allopurinol 100 Mg Tablet PO 100 mg BID SHAHAB Administration Azithromycin 500 mg 01/17/25 13:05 01/18/25 08:47 Azithromycin 250 Mg Tablet PO 01/20/25 09:01 500 mg DAILY SHAHAB Administration Carvedilol 25 mg 01/17/25 09:00 01/18/25 08:48 Carvedilol 12.5 Mg Tablet PO 25 mg Q12HR SHAHAB Administration Enoxaparin Sodium 40 mg 01/18/25 09:00 01/18/25 08:40 Enoxaparin 40 Mg/0.4 Ml Syringe SUB-Q 40 mg DAILY SHAHAB Administration Hydralazine HCl 100 mg 01/17/25 09:00 01/18/25 08:47 Hydralazine Hcl 25 Mg Tablet PO 100 mg BID SHAHAB Administration Ceftriaxone Sodium 1 gm in 50 mls @ 100 mls/hr 01/16/25 17:00 01/17/25 17:15 Rocephin 1 Gm/Ns 50 Ml IVPB 100 mls/hr Q24H SHAHAB Administration Lovastatin 10 mg 01/17/25 18:00 01/17/25 17:22 Lovastatin 10 Mg Tablet PO 10 mg QPM SHAHAB Administration Methylprednisolone Sodium Succinate 60 mg 01/16/25 22:00 01/18/25 05:32 Methylprednisolone Sod Succ 125 Mg Vial IV PUSH 60 mg Q8HR SHAHAB Administration Perflutren Lipid Microsphere 0 ml 01/17/25 13:25 Perflutren Lipid Microspheres 1.5 Ml Vial Diluted To 10 Ml Total Volume IV PUSH 01/20/25 13:25 ONCE PRN adequate visualization Protocol Radiology Results: ITS Impressions Chest X-Ray 01/16/25 16:05 IMPRESSION: Cardiomegaly with cardiac decompensation and pulmonary edema. Pneumonitis is not excluded. Right upper lobe pneumonia slightly improved. Labs Labs: Laboratory Results - last 24 hr 01/17/25 01/18/25 13:52 05:16 WBC 6.9 11.2 H RBC 5.04 5.07 Hgb 14.6 14.6 Hct 44.6 45.9 MCV 88.5 90.5 MCH 29.0 28.8 MCHC 32.7 31.8 L RDW 13.1 13.2 Plt Count 221 245 MPV 8.9 9.5 Immature Gran % (Auto) 0.6 H 0.8 H Neut % (Auto) 87.2 H 88.1 H Lymph % (Auto) 8.8 L 7.9 L Ray % (Auto) 3.3 3.1 Eos % (Auto) 0.0 L 0.0 L Baso % (Auto) 0.1 0.1 Lymph # (Auto) 0.61 L 0.89 L Ray # (Auto) 0.23 0.35 Eos # (Auto) 0.00 L 0.00 L Baso # (Auto) 0.01 0.01 Abs Immat Gran (auto) 0.04 H 0.09 H Absolute Neuts (auto) 6.03 9.87 H Absolute Nucleated RBC 0.00 0.00 Nucleated RBC % 0.0 0.0 Sodium 139 141 Potassium 3.9 4.1 Chloride 99 104 Carbon Dioxide 29 30 Anion Gap 11 7 BUN 21 H 26 H Creatinine 1.82 H 1.60 H Estim Creat Clear Calc 51 57 Estimated GFR 37 L 43 L Glucose 159 H 149 H Hemoglobin A1c 5.5 Calculated Osmolality 294 299 H Calcium 9.7 9.7 Phosphorus 3.3 4.6 Magnesium 2.0 2.3 NT-Pro-B Natriuret Pep 225 H Albumin 3.7 3.6 Quality VTE Prophylaxis VTE prophylaxis: pharmacologic ordered (Lovenox) -Patient's previous records reviewed on admission -ER notes reviewed in detail on admission -discussed all findings and current treatment plan with patient/Family/POA -Consultations reviewed for recommendations -Patient's disposition for safe discharge discussed with manager case Dictation performed by [employer] direct speech recognition software, therefore mental health program director variants and typographical errors may occur. Hospitalist MIPS Advance Care Plan I have confirmed that the patient's Advanced Care Plan is present, code status is documented, or surrogate decision maker is listed in patient medical record.: Yes Medication Reconciliation I have utilized all available resources to obtain, update and review the patients current medications (includes all prescriptions, OTC, herbals, cannabis, and nutritional supplements).: Yes The patient is not eligible for med reconciliation; the patient is in a emergent medical situation where delaying treatment would jeopardize the patients health.: No
[2025-01-18] MEDS: LOVASTATIN 10 MG TABLET PO (17:57)
[2025-01-18] MEDS: AMOXICILLIN/CLAVULANATE K 875-125 MG TAB 1 TABLET PO (17:57)
[2025-01-18] MEDS: ACETAMINOPHEN 325 MG TABLET 650 MG PO (23:45)
[2025-01-19 00:05] VITALS: O2SAT 93
[2025-01-19 05:34] VITALS: PULSE 60; RESP 16; O2SAT 93
[2025-01-19] MEDS: ALBUTEROL SULFATE NEB 2.5 MG/3 ML INH INHALATION (05:34)
[2025-01-19 05:35] LABS: Basophils Absolute Auto 0.02 K/mm3 (0.00-0.10); Basophils Percent Auto 0.2 % (0.0-1.0); Hematocrit 45.1 % (37.0-46.0); Hemoglobin 13.9 g/dL (12.4-15.3); Immature Granulocyte Percent A 0.8 % (0.0-0.0); Lymphocytes Absolute Auto 1.22 K/mm3 (1.10-4.50); Lymphocytes Percent Auto 10.1 % (18.0-42.0); Mean Corpuscular HGB Conc 30.8 g/dL (32-36); Mean Corpuscular Hemoglobin 29.1 pg (27.0-31.0); Mean Corpuscular Volume 94.5 fL (78.0-102.0); Mean Platelet Volume 9.9 fl (8.7-11.0); Monocytes Percent Auto 4.9 % (2.0-11.0); Neutrophils Absolute Auto 10.19 K/mm3 (1.70-7.20); Platelet Count Result 208 K/mm3 (150-420); Red Blood Count 4.77 M/mm3 (4.70-6.10); Red Cell Distribution Width 13.2 % (11.6-14.4); White Blood Count 12.1 K/mm3 (4.8-10.8)
[2025-01-19 05:45] VITALS: PULSE 64; RESP 16; O2SAT 96
[2025-01-19 06:24] LABS: Anion Gap 7 mmol/L (4-12); Carbon Dioxide 25 mmol/L (22-30); Chloride 106 mmol/L (98-107); Sodium 138 mmol/L (137-145)
[2025-01-19 06:25] LABS: Albumin Level 3.6 g/dL (3.5-5.1); Blood Urea Nitrogen 31 mg/dL (9-20); Calcium 8.8 mg/dL (8.4-10.2); Estimated CRCL calculation 80 ml/min; Estimated Glomerular Filt Rate > 60; Glucose 104 mg/dL (65-110); Magnesium 2.6 mg/dL (1.6-2.3); Osmolality Calculated 292 mOsm/kg (285-295); Phosphorus 4.3 mg/dL (2.5-4.5)
[2025-01-19 08:00] VITALS: BP 127/55; PULSE 66; RESP 14; TEMP 36.4; O2SAT 95
[2025-01-19] MEDS: predniSONE 20 MG TABLET 40 MG PO (08:59)
[2025-01-19] MEDS: AMOXICILLIN/CLAVULANATE K 875-125 MG TAB 1 TABLET PO (09:00)
[2025-01-19] MEDS: hydrALAZINE HCL 25 MG TABLET 100 MG PO (09:00)
[2025-01-19 09:01] VITALS: PULSE 78
[2025-01-19] MEDS: FUROSEMIDE 20 MG TABLET PO (09:01)
[2025-01-19] MEDS: allopurinoL 100 MG TABLET PO (09:01)
[2025-01-19] MEDS: AZITHROMYCIN 250 MG TABLET 500 MG PO (09:01)
[2025-01-19] MEDS: carvediloL 12.5 MG TABLET 25 MG PO (09:01)
[2025-01-19] MEDS: ENOXAPARIN 40 MG/0.4 ML SYRINGE SUB-Q (09:02)
--- NOTE | 2025-01-19 09:54 | P.DS_ITS ---
DS: Admitting Diagnosis Discharge Date 01/19/2025 Admitting Diagnosis acute respiratory failure with hypoxia secondary to pneumonia and RSV DS: Discharge Diagnosis Discharge Diagnosis (1) Acute hypoxic respiratory failure: Code(s): J96.01 - Acute respiratory failure with hypoxia Status: Acute (2) RSV infection: Qualifiers: RSV infection type: pneumonia Qualified Code(s): J12.1 - Respiratory syncytial virus pneumonia Code(s): B33.8 - Other specified viral diseases Status: Acute (3) JESSEE (obstructive sleep apnea): Code(s): G47.33 - Obstructive sleep apnea (adult) (pediatric) Status: Acute (4) History of sarcoidosis: Code(s): Z86.2 - Personal history of diseases of the blood and blood-forming organs and certain disorders involving the immune mechanism Status: Acute (5) CKD (chronic kidney disease): Qualifiers: Chronic kidney disease stage: stage 3 (moderate) Chronic kidney disease stage 3 subtype: stage 3a (GFR 45-59) Qualified Code(s): N18.31 - Chronic kidney disease, stage 3a Code(s): N18.9 - Chronic kidney disease, unspecified Status: Acute (6) Pneumonia: Qualifiers: Laterality: right Lung location: upper lobe of lung Pneumonia type: due to unspecified organism Qualified Code(s): J18.9 - Pneumonia, unspecified organism Code(s): J18.9 - Pneumonia, unspecified organism Status: Acute DS: Summary Hospital Course Reason for hospitalization: acute respiratory failure with hypoxia secondary to pneumonia and RSV Hospital Course: patient was a 69-year-old male who was admitted for hospitalization due to acute respiratory hypoxia secondary to pneumonia and RSV. patient with past medical history CKD, hypertension, sarcoidosis in remission, and JESSEE. patient had initially been treated for right upper lobe pneumonia and RSV outpatient but his respiratory status continued to decline home which time he came to the emergency department was found to be hypoxic on admission. checks x-ray did show some cardiomegaly and possible pulmonary edema pneumonitis can not be excluded Patient was then admitted to the medical unit and started on IV Rocephin and azithromycin, DuoNebs and initially on IV steroids. patient with elevated BNP of 325 but no indication of CHF exacerbation likely secondary to pneumonia last echocardiogram April of 2024 showed a grade 3 diastolic dysfunction with a normal EF patient denied any recent weight gain and there was no notable peripheral edema. patient had received 1 dose IV Lasix and transitioned to 20mg PO mg discontinued on discharge recommended he follow-up with his primary care physician to continue monitoring. recommended outpatient echocardiogram once infectious process has resolved. Patient continues admission while we weaned his supplemental oxygen he was weaned back to room air and remained on room air maintaining oxygen saturations greater than 95% for greater than 24 hours he also continued to wear his CPAP at night. patient remained afebrile during his admission small bump in WBC likely reactive to the IV steroids. patient did have a blood culture come back with Staphylococcus epidermidis in 1 bottle likely To be contamination. patient initially with acute on chronic kidney failure with a creatinine 1.82 but had resolved at time of discharge creatinine 1.13/ BUN 31 patient with history of stage III. patient is seen assisted discharge in no acute distress felt back to his baseline continued on room air maintaining his oxygen saturations denied any chest pain, shortness breath, nausea, vomiting and was tolerating all oral intake with good oral hydration. patient discharged from oral antibiotic therapy to be completed as indicated recommended follow-up with his primary care physician within the next 1-2 weeks to seek medical attention respiratory symptoms worsen. Status at Discharge Functional status at discharge: independent ambulation Time Spent with Patient Time attestation: Total time spent providing and/or coordinating discharge services: Time spent: Greater than 30 minutes Exam Narrative: APPEARANCE: Mildly ill appearing obese male HEENT: PERRL, neck supple, no adenopathy RESPIRATORY: scant wheezing throughout otherwise clear lung sounds to auscultation CARDIOVASCULAR: RRR ABDOMINAL: Soft, nontender MUSCULOSKELETAL: Moves all extremities. NEURO: Alert and oriented, SKIN: Warm, dry. Normal Color DS: Data Data Completed and Pending Labs on day of discharge: Labs from last 24 hours 01/19/25 05:29 WBC 12.1 H RBC 4.77 Hgb 13.9 Hct 45.1 MCV 94.5 MCH 29.1 MCHC 30.8 L RDW 13.2 Plt Count 208 MPV 9.9 Immature Gran % (Auto) 0.8 H Neut % (Auto) 84.0 H Lymph % (Auto) 10.1 L Woodward % (Auto) 4.9 Eos % (Auto) 0.0 L Baso % (Auto) 0.2 Lymph # (Auto) 1.22 Woodward # (Auto) 0.60 Eos # (Auto) 0.00 L Baso # (Auto) 0.02 Abs Immat Gran (auto) 0.10 H Absolute Neuts (auto) 10.19 H Absolute Nucleated RBC 0.00 Nucleated RBC % 0.0 Sodium 138 Potassium 4.0 Chloride 106 Carbon Dioxide 25 Anion Gap 7 BUN 31 H D Creatinine 1.13 Estim Creat Clear Calc 80 Estimated GFR > 60 Glucose 104 Calculated Osmolality 292 Calcium 8.8 Phosphorus 4.3 Magnesium 2.6 H Albumin 3.6 Preliminary micro results at discharge 01/16/25 15:55 Blood Culture - Preliminary Blood Staphylococcus epidermidis 01/16/25 16:25 Blood Culture - Preliminary Blood Imaging Radiologist's impression: FINDINGS: MEDIASTINUM: The cardiac silhouette is moderately enlarged. Congestive alisa. LUNGS: No effusions or pneumothorax. Bilateral interstitial thickening. Minimal opacification in the right upper lobe which is slightly improved. OTHER: No free air under the diaphragm. IMPRESSION: Cardiomegaly with cardiac decompensation and pulmonary edema. Pneumonitis is not excluded. Right upper lobe pneumonia slightly improved. Discharge Plan Discharge Attending physician on discharge: Ellen Mahajan Consulting providers: Jia Vitale Discharging Clinician: Jia Vitale Anticipated Discharge Date/Time: 01/19/25 09:47 Patient Disposition: Home Activity: may shower and as tolerated Diet: heart healthy Discharge Instructions: RSV: * Supportive care * Acetaminophen for fevers and pain * encourage oral hydration * increase activity as tolerated * if you start experiencing breathing and increased shortness breath seek medical attention Pneumonia: * I have prescribed antibiotic therapy for your pneumonia please complete as directed even if feeling better * continue using your incentive spirometer * you can use [id number] Mucinex for secretions/ cough follow-up with your primary care physician within 1-2 weeks How can you care for yourself at home? ? Keep track of any new symptoms or changes in your symptoms. ? Rest until you feel better. ? Be safe with medicines. Take your medicines exactly as prescribed. Call your doctor if you think you are having a problem with your medicine. ? Do not drive after taking a prescription pain medicine. ? Ensure to follow-up with primary care physician as indicated and provide updated medication list provided to you at discharge. When should you call for help? Call 911 anytime you think you may need emergency care. For example, call if: ? You passed out (lost consciousness). Call your doctor now or seek immediate medical care if: ? You have new symptoms like fever, difficulty breathing, Chest pain, vomiting, or rash. ? You have new or different pain. ? You are confused and are having trouble thinking clearly. ? Your symptoms are getting worse. Watch closely for changes in your health, and be sure to contact your doctor if: ? You do not get better as expected. Patient Instructions: Antibiotic Form, Bacterial Pneumonia (DC), RSV (Respiratory Syncytial Virus) Infection (DC) Patient Language: Montenegrin Stand Alone Forms: General Discharge Information Follow-up/Referrals: Denis Best MD [Primary Care Provider] - 2 weeks Discharge Medications: New azithromycin [Zithromax] 250 mg Tablet 500 mg PO DAILY Qty: 2 0RF amoxicillin-pot clavulanate 875-125 mg tablet 1 tablet PO Q12H Qty: 8 0RF Continued hydralazine 100 mg tablet 100 mg PO BID allopurinol 100 mg tablet 100 mg PO BID lovastatin 10 mg tablet 10 mg PO QPM carvedilol 25 mg tablet 25 mg PO Q12H Rx Instructions: must administer with a meal/food Men's 50 Plus Multivitamin 400-20-370 mcg tablet 1 tablet PO DAILY Qty: 1 0RF benzonatate 100 mg capsule 100 mg PO TID PRN (Reason: cough) Qty: 14 0RF albuterol sulfate 90 mcg/actuation HFA aerosol inhaler 1 puff inhalation QID Qty: 6.7 0RF Date of admission: 01/17/25 14:52 Primary Care Provider: Denis Best Admitting Provider: Ellen Mahajan Attending physician on admission: Ellen Mahajan Condition: Stable Quality VTE Prophylaxis VTE prophylaxis: pharmacologic ordered (Lovenox) -Patient's previous records reviewed on admission -ER notes reviewed in detail on admission -discussed all findings and current treatment plan with patient/Family/POA -Consultations reviewed for recommendations -Patient's disposition for safe discharge discussed with major case detective Dictation performed by ethology direct speech recognition software, therefore heavy equipment engine mechanic variants and typographical errors may occur. Hospitalist MIPS Heart Failure (Exclusion) Patient has history of Heart Transplant or Left Ventricular Assistive Device?: No IF YES, STOP HERE Heart Failure (Qualifier) Patient has current or prior documentation of LVEF less than or equal to 40%, or mod/servere depressed LVSF?: No IF NO, STOP HERE
--- NOTE | 2025-01-19 10:53 | PC.NURSE ---
Pt discharged to home and family care. Discharge instructions given to both Family and PT. Antibiotic teaching done, home medication teaching done. S&S to watch for and when to call the PCP. Pt instructed to call PCP for follow up appointment. Pt and Family member verbalize understanding.
[2025-01-20 15:43] LABS: Pneumococcal Antigen Urine NOT DETECTED
[2025-01-26 19:33] LABS: Legionella pneumophila Ag Ur NOT DETECTED
== END 2025-01-19 10:45 | disposition home or self-care (01) | DRG 193 ==
LOC: CHSED 16:47 → CHS2ND 16:59
PROVIDERS: Nurse Practitioner; Admitting Provider Internal Medicine; Emergency Provider Emergency Medicine; PCP Internal Medicine; Visit Provider Internal Medicine
DX: J12.1 Respiratory syncytial virus pneumonia (principal); I50.33 Acute on chronic diastolic (congestive) heart failure; J96.01 Acute respiratory failure with hypoxia; I13.0 Hypertensive heart and chronic kidney disease with heart failure and stage 1 through stage 4 chronic kidney disease, or unspecified chronic kidney disease; N17.9 Acute kidney failure, unspecified; J18.9 Pneumonia, unspecified organism; N18.31 Chronic kidney disease, stage 3a; D86.9 Sarcoidosis, unspecified; G47.33 Obstructive sleep apnea (adult) (pediatric); Z99.89 Dependence on other enabling machines and devices
CPT/HCPCS: 36415; 71045; 80053; 80069; 83036; 83605; 83735; 83880; 84484; 85025; 85610; 85730; 87040; 87147; 87181; 87449; 87637; 87899; 93005; 94640; 96365; 96375; 99285; A9270; G0378; J0456; J0696; J1650; J1938; J2919; J7512

== ENCOUNTER 2025-01-22 17:30 | Observation (INO) | payer MEDICARE, SELFPAY ==
--- NOTE | ~2025-01-22 | XR_ITS ---
XR chest 1V portable Ordering provider: Mauro Woodruff MD History: 69 years Male with . cough . Comparison: January 16, 2025 FINDINGS: MEDIASTINUM: The cardiac silhouette is moderately enlarged. Congestive alisa. LUNGS: No effusions or pneumothorax. Minimal opacification seen in the lower lobes highly suggestive of pneumonitis.Underlying edema is also not excluded. OTHER: No free air under the diaphragm. IMPRESSION: Bilateral basal minimal opacification which may indicate pneumonia. Underlying pulmonary edema is not excluded. Follow-up advised. Reviewed, dictated and finalized at location A.
--- NOTE | ~2025-01-22 | XR_ITS ---
Lumbosacral Spine: AP and lateral views Clinical History: Pain Findings: The normal lordotic curve is maintained. There is posterior and interbody fusion from L5 to S1. No other fracture or subluxation seen. There is extensive DISH of the lumbar spine. There is ext ensive severe facet arthropathy and lumbar spine. Disc spaces are relatively well-preserved. The sacr oiliac joints are normally outlined. Impression: Extensive facet arthropathy and DISH of the lumbar spine. Posterior and interbody fusion from L5 to S1. Reviewed, dictated and finalized at location M. Impression: Extensive facet arthropathy and DISH of the lumbar spine. Posterior and interbody fusion from L5 to S1.
--- OUTSIDE RECORDS SUMMARY | 2025-01-22 17:31 | XMS_ITS | Continuity of Care Document ---
Author Organization [facility] Address [address] [place] [address] [facility] [address] [place] [address] Phone Care Team Providers Care Pipe Installer Name Role Phone Lauraaba Mckinley Unavailable Unavailable Procedures Procedure Date Office/outpatient Visit, [facility] Advance Directives Directive Yes / No Effective Date File Name No Information Encounters Encounter Description Practice Location Reason(s) For Visit Diagnoses Date Provider Providers Copied on Encounter Office/outpat ient Visit, [facility], [address] [place] [address] [address], [place], [place], [id number], tel:[phone] [facility] No Information 3-201 0 Carline Mckinley. [address] [facility] [address], [place], [address], [place]. tel:[phone] Family History Family Member Type Diagnosis Age At Onset No Information Payers Payer name Insurance type Covered constitution party ID Authoriza tiayana(s) César Alejandro [id number] Social History Type Description Quantity Date Captured [...]
--- OUTSIDE RECORDS SUMMARY | 2025-01-22 17:31 | XMS_ITS | Clinical Summary ---
Author Organization [facility] Address [facility] [place] [address] Care Team Providers Care Bulk Tank Driver Name Role Phone Unavailable Primary Care Provider [...]
--- OUTSIDE RECORDS SUMMARY | 2025-01-22 17:31 | XMS_ITS | Clinical Summary ---
Author Organization [facility] Address [address] [place] [address] Care Team Providers Care Pig Iron Loader Name Role Phone Unavailable Primary Care Provider Unavailabl e Source Comments [facility],non-owned Affiliates and Associated Physician Practices is amultiple site organization consisting of ambulatory clinics and hospital sitesin [place], [place], [place] and [place]. 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
[2025-01-22 17:41] VITALS: BP 155/95; PULSE 66; RESP 18; TEMP 36.9; O2SAT 93
--- NOTE | 2025-01-22 17:43 | ED.BACK ---
HPI - Back Pain/Injury General Chief Complaint: Back Pain/Injury Stated Complaint: back pain, leg swelling Time Seen by Provider: 01/22/25 17:43 Source: patient Mode of arrival: EMS Limitations: no limitations History of Present Illness HPI Narrative: patient is a 69-year-old male who was just hospitalized for RSV and pneumonia here with lower back pain on the left as well as continued and recurrent lower extremity edema. MD elicited complaint: back pain Pertinent past history: prior back pain Onset (ago): day(s) ( One) Timing: constant Severity: severe Pain scale (0-10): 8 Similar Symptoms Previously: Yes Quality: sharp Location: lumbar spine ( left lower) Radiation: none Exacerbating factors: movement Relieving factors: immobilization Context: unknown Associated symptoms: other ( patient also has lower extremity edema bilaterally which was resolved during hospitalization with Lasix.) Treatments prior to arrival: other ( None) Work related injury: No Related Data Home Medications Medication Instructions Recorded Confirmed Last Taken Type allopurinol 100 mg tablet 100 mg PO BID 04/18/21 01/16/25 01/16/25 History carvedilol 25 mg tablet 25 mg PO Q12H 04/18/21 01/16/25 01/16/25 History lovastatin 10 mg tablet 10 mg PO QPM 04/18/21 01/16/25 01/15/25 History hydralazine 100 mg tablet 100 mg PO BID 07/22/24 01/16/25 01/16/25 History Allergies Allergy/AdvReac Type Severity Reaction Status Date / Time No Known Allergies Allergy Mild Verified 01/16/25 15:31 Review of Systems Review of Systems: All systems reviewed & are unremarkable except as noted in HPI and below Constitutional: Constitutional: Reports no additional constitutional complaints Eyes: Eyes: Reports no additional eye complaints ENT: Reports system reviewed and no additional complaints, except as documented Cardiovascular: Cardiovascular: Reports no additional cardiovascular complaints Respiratory: Respiratory: Reports no additional respiratory complaints Gastrointestinal: Gastrointestinal: Reports no additional gastrointestinal complaints Genitourinary: Genitourinary: Reports no additional male genitourinary complaints Musculoskeletal: Musculoskeletal: Reports no additional musculoskeletal complaints Integumentary/Breasts: Skin/Breast: Reports system reviewed and no additional complaints, except as docu Neurologic: Reports system reviewed and no additional complaints, except as documented Psychiatric: Psychiatric: Reports no additional psychiatric complaints Endocrine: Endocrine: Reports no additional endocrine complaints Hematologic/Lymphatic: Hematologic/Lymphatic: Reports no additional hematologic/lymphatic complaints Allergic/Immunologic: Allergic/Immunologic: Reports no additional allergic/immunologic complaints [facility] Past Medical History Medical History Sarcoidosis Dx in his 40's, was on prednisone for 18 months and this improved. In remission. Impaired fasting glucose Hyperuricemia GERD (gastroesophageal reflux disease) Essential tremor CKD (chronic kidney disease) Sciatica HTN (hypertension) Family History Family History Father Malignant neoplasm of prostate Lung cancer Mother Diabetes mellitus Heart disease Social History Social History Smoking status: Never smoker Second hand tobacco smoke exposure: No Alcohol intake: former Alcohol use details: 2 beers/week Substance use: never Substance use type: does not use Do You Feel Safe in your Home?: Yes Lack of Transportation: No Lack of Food: Never True Current Housing: I Have Housing Concerned About Future Housing: No Difficulty Paying Gas/Electric Bills: No Difficulty Paying for Meds: No Currently Unemployed: No Education: High School Diploma/GED Difficulty w/ Childcare or Family Care: No Living arrangements: with family Spiritual care concerns: No Exam Const: General: healthy appearing Nutritional Appearance: well nourished Orientation/consciousness: patient oriented x3 HENMT: Head: normal to inspection Ears: external ears normal Face/Nose/Sinus: Normal external nose present Eyes: Conjunctivae: conjunctivae normal Pupils: Equal, round and reactive pupils present EOM: EOMs intact bilaterally Neck: Neck: normal visual inspection Chest: Chest palpation & inspection: normal inspection of the chest Resp: Effort & Inspection: normal respiratory effort and not labored Auscultation: clear to auscultation bilaterally and no crackles Cardio: Rate: regular rate Rhythm: regular rhythm Heart sounds: no murmurs GI: Inspection: non-distended GI Palp: Yes Soft to palpation and No Tenderness to palpation present (GI) Auscultation: normal bowel sounds : General: Yes bladder normal to palpation Back/Spine/Pelvis: Back: no CVA tenderness Skin: General skin exam: normal color Rashes: no rashes Wounds: no wounds Neuro: General: patient oriented x3 Cranial nerves: Yes Nystagmus not present Speech: normal speech Gait exam (Neuro): gait abnormal Extrem: General: normal to inspection and edema ( bilateral lower extremity) Psych: Mental Status: mental status grossly normal Affect: normal affect Attitude: cooperative Course Vital Signs Vital signs: Vital Signs Temperature 36.9 C 01/22/25 17:41 Pulse Rate 66 01/22/25 17:41 Respiratory Rate 18 01/22/25 17:41 Blood Pressure 155/95 H 01/22/25 17:41 Pulse Oximetry 93 01/22/25 17:41 Oxygen Delivery Room Air 01/22/25 17:41 Temperature 36.9 C 01/22/25 17:41 Pulse Rate 61 01/22/25 19:00 Respiratory Rate 17 01/22/25 19:00 Blood Pressure 150/66 H 01/22/25 19:00 Pulse Oximetry 94 01/22/25 19:00 Oxygen Delivery Room Air 01/22/25 17:41 MDM - Back Pain/Injury MDM Narrative Medical decision making narrative: patient is 69-year-old male with left lower back pain and bilateral lower extremity edema. We will do workup at this time. Pain control. Lab Data Attestation: I reviewed the patient's lab results. 01/22/25 19:35 01/22/25 19:35 Labs: Lab Results 01/22/25 Range/Units 19:35 WBC 10.6 (4.8-10.8) K/mm3 RBC 5.00 (4.70-6.10) M/mm3 Hgb 14.5 (12.4-15.3) g/dL Hct 47.2 H (37.0-46.0) % MCV 94.4 (78.0-102.0) fL MCH 29.0 (27.0-31.0) pg MCHC 30.7 L (32-36) g/dL RDW 13.3 (11.6-14.4) % Plt Count 180 (150-420) K/mm3 MPV 10.0 (8.7-11.0) fl Immature Gran % (Auto) 2.0 H (0.0-0.0) % Neut % (Auto) 75.6 H (50.0-70.0) % Lymph % (Auto) 14.5 L (18.0-42.0) % Gregg % (Auto) 4.3 (2.0-11.0) % Eos % (Auto) 3.2 (1.0-6.0) % Baso % (Auto) 0.4 (0.0-1.0) % Lymph # (Auto) 1.54 (1.10-4.50) K/mm3 Gregg # (Auto) 0.46 (0.10-0.90) K/mm3 Eos # (Auto) 0.34 (0.02-0.50) K/mm3 Baso # (Auto) 0.04 (0.00-0.10) K/mm3 Abs Immat Gran (auto) 0.21 H (0.00-0.00) K/mm3 Absolute Neuts (auto) 8.00 H (1.70-7.20) K/mm3 Absolute Nucleated RBC 0.00 (0.00-0.00) K/mm3 Nucleated RBC % 0.0 (0-0.0) % Sodium 136 (136-145) mmol/L Potassium 4.4 (3.5-5.1) mmol/L Chloride 102 (98-108) mmol/L Carbon Dioxide 25 (21-32) mmol/L Anion Gap 9 (4-12) mmol/L BUN 20 H (7-18) mg/dL Creatinine 1.35 H (0.70-1.30) mg/dL Estim Creat Clear Calc 66 ml/min Estimated GFR 52 L (59 - ) Glucose 100 H (70-99) mg/dL Calculated Osmolality 284 L (285-295) mOsm/kg Calcium 9.0 (8.5-10.1) mg/dL Total Bilirubin 0.4 (0.00-1.00) mg/dL AST 38 H (15-37) U/L ALT 78 H (16-63) U/L Alkaline Phosphatase 48 (46-116) U/L Troponin I 8.5 (0.00-60.4) ng/L NT-Pro-B Natriuret Pep 159 H (0-125) pg/mL Total Protein 6.0 L (6.4-8.2) g/dL Albumin 3.1 L (3.4-5.0) g/dL Urine Color Light yellow (Yellow) Urine Appearance Clear (Clear) Urine pH 6.0 (5.0-8.0) Ur Specific Matthews 1.010 (1.010-1.020) Urine Protein Negative (Negative) Urine Glucose (UA) Negative (Negative) Urine Ketones Negative (Negative) Ur Blood (Man) Negative (Negative) Urine Nitrate Negative (Negative) Urine Bilirubin Negative (Negative) Urine Urobilinogen 0.2 (0.2-1.0) mg/dL Leukocyte Esterase Rfl Negative (Negative) SIA/UL Imaging Data Attestation: I personally reviewed and interpreted this imaging study as follows: Radiologist's impression: chest x-ray shows IMPRESSION: Bilateral basal minimal opacification which may indicate pneumonia. Underlying pulmonary edema is not excluded. Follow-up advised. ECG Data EKG #1: Attestation: I personally reviewed and interpreted this ECG as follows: ECG completion date: 01/22/25 ECG completion time: 19:32 EKG Interpretation: normal rate, sinus rhythm, no ectopy, non-specific ST changes, normal QRS, normal QT and NL axis Discharge Plan Discharge Clinical Impression: Lumbago Qualifiers: Chronicity: acute Back pain laterality: left Sciatica presence: without sciatica Qualified Code(s): M54.50 - Low back pain, unspecified Pneumonia Qualifiers: Pneumonia type: due to unspecified organism Laterality: bilateral Lung location: lower lobe of lung Qualified Code(s): J18.9 - Pneumonia, unspecified organism Edema Qualifiers: Edema type: localized Qualified Code(s): R60.0 - Localized edema Patient Disposition: Home Condition: Stable Instructions: Antibiotic Form, Acute Low Back Pain (ED), Bacterial Pneumonia (DC), Edema (ED) Patient Language: Saudi Arabian Prescriptions: New furosemide [Lasix] 20 mg tablet 20 mg PO DAILY PRN (Reason: edema) Qty: 20 0RF potassium chloride [Klor-Con 10] 10 mEq tablet extended release 10 meq PO DAILY MDD with lasix use PRN (Reason: edema) Qty: 20 0RF orphenadrine citrate 100 mg tablet extended release 100 mg PO BID PRN (Reason: pain) Qty: 20 0RF hydrocodone-acetaminophen 5-325 mg tablet 1 tablet PO Q8H PRN (Reason: pain) Qty: 20 0RF Rx Instructions: 1-2 tabs per dose azithromycin 500 mg tablet 500 mg PO DAILY 3 Days Qty: 3 0RF No Action azithromycin [Zithromax] 250 mg Tablet 500 mg PO DAILY Qty: 2 0RF amoxicillin-pot clavulanate 875-125 mg tablet 1 tablet PO Q12H Qty: 8 0RF hydralazine 100 mg tablet 100 mg PO BID allopurinol 100 mg tablet 100 mg PO BID lovastatin 10 mg tablet 10 mg PO QPM carvedilol 25 mg tablet 25 mg PO Q12H Rx Instructions: must administer with a meal/food Men's 50 Plus Multivitamin 400-20-370 mcg tablet 1 tablet PO DAILY Qty: 1 0RF benzonatate 100 mg capsule 100 mg PO TID PRN (Reason: cough) Qty: 14 0RF albuterol sulfate 90 mcg/actuation HFA aerosol inhaler 1 puff inhalation QID Qty: 6.7 0RF Follow-up/Referrals: Denis Best MD [Primary Care Provider] - Time of Disposition: 21:05
--- OUTSIDE RECORDS SUMMARY | 2025-01-22 17:59 | XMS_ITS | Continuity of Care Document ---
Author Organization [facility] Address [address] [place] [address] [facility] [address] [place] [address] Phone Care Team Providers Care Metallurgical Engineer Name Role Phone Lauraaba Mckinley Unavailable Unavailable Procedures Procedure Date Office/outpatient Visit, [facility] Advance Directives Directive Yes / No Effective Date File Name No Information Encounters Encounter Description Practice Location Reason(s) For Visit Diagnoses Date Provider Providers Copied on Encounter Office/outpat ient Visit, [facility], [address] [place] [address] [address], [place], [place], [id number], tel:[phone] [facility] No Information 3-201 0 Carline Mckinley. [address] [facility] [address], [place], [address], [place]. tel:[phone] Family History Family Member Type Diagnosis Age At Onset No Information Payers Payer name Insurance type Covered green party ID Authoriza tiayana(s) César Alejandro [id number] Social History Type Description Quantity Date Captured [...]
--- OUTSIDE RECORDS SUMMARY | 2025-01-22 17:59 | XMS_ITS | Clinical Summary ---
Author Organization [facility] Address [facility] [place] [address] Care Team Providers Care Rfid Manager Name Role Phone Unavailable Primary Care Provider [...]
--- OUTSIDE RECORDS SUMMARY | 2025-01-22 17:59 | XMS_ITS | Clinical Summary ---
Author Organization [facility] Address [address] [place] [address] Care Team Providers Care Regulatory Affairs Intern Name Role Phone Unavailable Primary Care Provider Unavailabl e Source Comments [facility],non-owned Affiliates and Associated Physician Practices is amultiple site organization consisting of ambulatory clinics and hospital sitesin [place], [place], [place] and [place]. This disclosure is being madepursuant to the Care Everywhere program and may not contain all information available regarding this patient. 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
--- NOTE | 2025-01-22 18:24 | ECG_ITS ---
Test Date: 2025-01-22 18:42:20 Measurements Intervals Huffman Rate: 60 P: 49 KS: 176 QRS: 26 QRSD: 109 T: 29 QT: 405 QTc: 407 Interpretive Statements SINUS RHYTHM LOW QRS VOLTAGE IN PRECORDIAL LEADS [QRS DEFLECTION < 1.0 mV IN CHEST LEADS] INCOMPLETE RIGHT BUNDLE BRANCH BLOCK [90+ ms QRS DURATION, TERMINAL R IN V1/V2, 40+ ms S IN I/aVL/V4/V5/V6] POSSIBLE ANTERIOR MYOCARDIAL INFARCTION , OF INDETERMINATE AGE [30 ms Q WAVE IN V3/V4, OR R < 0.2 mV IN V4] Compared to ECG 01/16/2025 16:06:02 NO SIGNIFICANT CHANGES Electronically Signed On 01-24-2025 13:57:22 CDT by Lakshmi Nguyen M.D.
[2025-01-22 18:30] VITALS: BP 135/73; PULSE 65; RESP 17; O2SAT 94
[2025-01-22] MEDS: HYDROcodone/acetaminophen (*CRX) 10-325 MG TABLET 1 TAB PO (18:46)
[2025-01-22] MEDS: ORPHENADRINE CITRATE 30 MG/ML 2 ML VIAL 60 MG IM (18:47)
[2025-01-22] MEDS: predniSONE 20 MG TABLET 40 MG PO (18:47)
[2025-01-22 19:00] VITALS: BP 150/66; PULSE 61; RESP 17; O2SAT 94
[2025-01-22 19:48] LABS: Basophils Absolute Auto 0.04 K/mm3 (0.00-0.10); Basophils Percent Auto 0.4 % (0.0-1.0); Eosinophils Absolute Auto 0.34 K/mm3 (0.02-0.50); Eosinophils Percent Auto 3.2 % (1.0-6.0); Hematocrit 47.2 % (37.0-46.0); Hemoglobin 14.5 g/dL (12.4-15.3); Immature Granulocyte Absolute 0.21 K/mm3 (0.00-0.00); Lymphocytes Absolute Auto 1.54 K/mm3 (1.10-4.50); Lymphocytes Percent Auto 14.5 % (18.0-42.0); Mean Corpuscular HGB Conc 30.7 g/dL (32-36); Mean Corpuscular Volume 94.4 fL (78.0-102.0); Monocytes Absolute Auto 0.46 K/mm3 (0.10-0.90); Monocytes Percent Auto 4.3 % (2.0-11.0); Neutrophils Percent Auto 75.6 % (50.0-70.0); Platelet Count Result 180 K/mm3 (150-420); Red Cell Distribution Width 13.3 % (11.6-14.4); White Blood Count 10.6 K/mm3 (4.8-10.8)
[2025-01-22 19:57] LABS: Add Urine Microscopic? NO; Appearance Urine Clear (Clear); Bilirubin Urine Negative (Negative); Blood Urine Negative (Negative); Color Urine Light Yellow (Yellow); Glucose Urine UA Negative (Negative); Ketones Urine Negative (Negative); Leukocyte Esterase Ur Negative LEU/UL (Negative); Nitrate Urine Negative (Negative); Protein Urine Negative (Negative); Urobilinogen Urine 0.2 mg/dL (0.2-1.0)
[2025-01-22 20:07] LABS: Alanine Aminotransferase 78 U/L (16-63); Albumin Level 3.1 g/dL (3.4-5.0); Alkaline Phosphatase 48 U/L (46-116); Anion Gap 9 mmol/L (4-12); Aspartate Amino Transferase 38 U/L (15-37); Bilirubin,Total 0.4 mg/dL (0.00-1.00); Blood Urea Nitrogen 20 mg/dL (7-18); Carbon Dioxide 25 mmol/L (21-32); Chloride 102 mmol/L (98-108); Estimated CRCL calculation 66 ml/min; Estimated Glomerular Filt Rate 52; Glucose 100 mg/dL (70-99); NT Pro B Type Natriuretic Pept 159 pg/mL (0-125); Osmolality Calculated 284 mOsm/kg (285-295); Potassium 4.4 mmol/L (3.5-5.1); Sodium 136 mmol/L (136-145); Troponin I 8.5 ng/L (0.00-60.4)
[2025-01-22] MEDS: HYDROcodone/acetaminophen (*CRX) 5-325 MG TABLET 1 TAB PO (21:23)
[2025-01-22 22:48] VITALS: BMI 54.8
[2025-01-22 23:15] VITALS: PULSE 69; RESP 18; O2SAT 94
[2025-01-22] MEDS: AMOXICILLIN/CLAVULANATE K 875-125 MG TAB 1 TABLET PO (23:29)
[2025-01-22 23:30] VITALS: BP 180/72; PULSE 61; PULSE 65; RESP 18; TEMP 36.3; O2SAT 94
[2025-01-22] MEDS: BENZONATATE 100 MG CAPSULE PO (23:30)
[2025-01-22] MEDS: LOVASTATIN 10 MG TABLET PO (23:30)
[2025-01-22] MEDS: carvediloL 12.5 MG TABLET 25 MG PO (23:30)
[2025-01-22] MEDS: allopurinoL 100 MG TABLET PO (23:31)
[2025-01-22] MEDS: hydrALAZINE HCL 25 MG TABLET 100 MG PO (23:31)
--- NOTE | 2025-01-22 23:49 | ADMGEN ---
This patient, Zechariah Jenkins, was admitted to 2nd Floor Room 211-1. Patient/family oriented to hospital policies and general routines including ID bracelet, bed and alarms, pain management, procedures, bathroom and other care routines, personal items, smoking policy, room service/diet, and visiting hours. Information on how to activate the Rapid Response Team has been discussed. Patient/Family are encouraged to report perceived risks to care and to ask questions if they do not understand what they are told or what they should do.
[2025-01-23] MEDS: MORPHINE SULFATE (*CRX) 2 MG/ML INJ IV PUSH ×3 (00:07→09:12)
[2025-01-23] MEDS: ALBUTEROL SULFATE (*SP) INHALER 1 PUFF INHALATION ×2 (06:44→10:30)
[2025-01-23 08:00] VITALS: BP 144/78; PULSE 75; RESP 14; TEMP 36.4; O2SAT 96
[2025-01-23] MEDS: allopurinoL 100 MG TABLET PO (09:10)
[2025-01-23 09:11] VITALS: PULSE 78
[2025-01-23] MEDS: AZITHROMYCIN 250 MG TABLET 500 MG PO (09:11)
[2025-01-23] MEDS: carvediloL 12.5 MG TABLET 25 MG PO (09:11)
[2025-01-23] MEDS: AMOXICILLIN/CLAVULANATE K 875-125 MG TAB 1 TABLET PO (09:11)
[2025-01-23] MEDS: hydrALAZINE HCL 25 MG TABLET 100 MG PO (09:11)
[2025-01-23] MEDS: LIDOCAINE 5% PATCH 1 PATCH TRANSDERM (10:10)
[2025-01-23] MEDS: KETOROLAC 30 MG/ML VIAL (*BKC) IV PUSH (10:28)
[2025-01-23] MEDS: CYCLOBENZAPRINE HCL 10 MG TABLET PO (10:29)
--- NOTE | 2025-01-23 12:35 | P.SS_ITS ---
Same Day Admit/Disch: HPI History of Present Illness Chief complaint: LUMBAR RADICULOPATHY Narrative: Zechariah Jenkins is a 69 year old male with a past medical history of HTN, CHF, CKD, Sarcoidosis, and JESSEE with CPAP. He was just discharged from [facility] after a hospital stay for acute respiratory failure with hypoxia secondary to PNA and RSV which he was discharged home after he was weaned back to room air. He presented to the ED with complaints of severe lower back pain/strain secondary to his recent episodes of cough and stating he was unable to walk up his For stairs at home. Patient does have a past history of neurosurgery with cage placement and lumbar stenosis. Patient's labs reviewed unremarkable vital stable and lumbar x-ray showed no acute fractures but did show extensive facet arthropathy and DISH of the lumbar spine with a fusion from L5-S1. patient was admitted to the medical unit for pain management with consult for PT /OT for further evaluation. Patient denied any chest pain, shortness a breath, nausea, vomiting, fever chills. [facility] Past Medical History Medical History Sarcoidosis Dx in his 40's, was on prednisone for 18 months and this improved. In remission. Impaired fasting glucose Hyperuricemia GERD (gastroesophageal reflux disease) Essential tremor CKD (chronic kidney disease) Sciatica HTN (hypertension) Family History Family History Father Malignant neoplasm of prostate Lung cancer Mother Diabetes mellitus Heart disease Social History Social History Smoking status: Never smoker Second hand tobacco smoke exposure: No Alcohol intake: former Alcohol use details: 2 beers/week Substance use: never Substance use type: does not use Do You Feel Safe in your Home?: Yes Lack of Transportation: No Lack of Food: Never True Current Housing: I Have Housing Concerned About Future Housing: No Difficulty Paying Gas/Electric Bills: No Difficulty Paying for Meds: No Currently Unemployed: No Education: High School Diploma/GED Difficulty w/ Childcare or Family Care: No Living arrangements: with family Spiritual care concerns: No Same Day Admit/Disch: Med Pre-admit Medications Home Medications Medication Instructions Recorded Confirmed Type allopurinol 100 mg tablet 100 mg PO BID 04/18/21 01/22/25 History carvedilol 25 mg tablet 25 mg PO Q12H 04/18/21 01/22/25 History lovastatin 10 mg tablet 10 mg PO QPM 04/18/21 01/22/25 History qadnmqsridzo-xvz-stcky acid-vit 1 tablet PO DAILY #1 tablet 04/18/21 01/22/25 Rx K-lycop 400 mcg-20 mcg-370 mcg tablet (Men's 50 Plus Multivitamin) hydralazine 100 mg tablet 100 mg PO BID 07/22/24 01/22/25 History albuterol sulfate 90 mcg/actuation 1 puff inhalation QID #6.7 grams 01/14/25 01/22/25 Rx aerosol inhaler benzonatate 100 mg capsule 100 mg PO TID PRN cough #14 caps 01/14/25 01/22/25 Rx amoxicillin 875 mg-potassium 1 tablet PO Q12H #8 tabs 01/19/25 01/22/25 Rx clavulanate 125 mg tablet azithromycin 250 mg tablet 500 mg (2 x 250 mg) PO DAILY #2 01/19/25 01/22/25 Rx (Zithromax) tabs azithromycin 500 mg tablet 500 mg PO DAILY 3 days #3 tabs 01/22/25 Rx furosemide 20 mg tablet (Lasix) 20 mg PO DAILY PRN edema #20 tabs 01/22/25 Rx hydrocodone 5 mg-acetaminophen 325 1 tablet PO Q8H PRN pain #20 tabs 01/22/25 Rx mg tablet orphenadrine citrate 100 mg 100 mg PO BID PRN pain #20 tabs 01/22/25 Rx tablet,extended release potassium chloride 10 mEq 10 meq PO DAILY PRN edema #20 tabs 01/22/25 Rx tablet,extended release (Klor-Con) cyclobenzaprine 10 mg tablet 10 mg PO Q8H PRN Muscle Spasm #30 01/23/25 Rx tabs diazepam 5 mg tablet (Valium) 5 mg PO BID PRN muscle spasm #10 01/23/25 Rx tabs ketorolac 10 mg tablet 10 mg PO Q8H PRN pain #15 tabs 01/23/25 Rx lidocaine 5 % topical patch 1 patch transdermal DAILY #30 ea 01/23/25 Rx (Lidoderm) Review of Systems Review of Systems All systems reviewed & are unremarkable except as noted in HPI and below Exam Narrative: APPEARANCE: Mildly ill appearing obese male HEENT: PERRL, neck supple, no adenopathy RESPIRATORY: scant wheezing throughout otherwise clear lung sounds to auscultation CARDIOVASCULAR: RRR ABDOMINAL: Soft, nontender MUSCULOSKELETAL: Moves all extremities. Reporting lumbar back pain worse with movement NEURO: Alert and oriented, SKIN: Warm, dry. Normal Color DS: Data Data Completed and Pending Labs on day of discharge: Labs from last 24 hours 01/22/25 19:35 WBC 10.6 RBC 5.00 Hgb 14.5 Hct 47.2 H MCV 94.4 MCH 29.0 MCHC 30.7 L RDW 13.3 Plt Count 180 MPV 10.0 Immature Gran % (Auto) 2.0 H Neut % (Auto) 75.6 H Lymph % (Auto) 14.5 L [place] % (Auto) 4.3 Eos % (Auto) 3.2 Baso % (Auto) 0.4 Lymph # (Auto) 1.54 [place] # (Auto) 0.46 Eos # (Auto) 0.34 Baso # (Auto) 0.04 Abs Immat Gran (auto) 0.21 H Absolute Neuts (auto) 8.00 H Absolute Nucleated RBC 0.00 Nucleated RBC % 0.0 Sodium 136 Potassium 4.4 Chloride 102 Carbon Dioxide 25 Anion Gap 9 BUN 20 H Creatinine 1.35 H Estim Creat Clear Calc 66 Estimated GFR 52 L Glucose 100 H Calculated Osmolality 284 L Calcium 9.0 Total Bilirubin 0.4 AST 38 H ALT 78 H Alkaline Phosphatase 48 Troponin I 8.5 NT-Pro-B Natriuret Pep 159 H Total Protein 6.0 L Albumin 3.1 L Urine Color Light yellow Urine Appearance Clear Urine pH 6.0 Ur Specific Crucible 1.010 Urine Protein Negative Urine Glucose (UA) Negative Urine Ketones Negative Ur Blood (Man) Negative Urine Nitrate Negative Urine Bilirubin Negative Urine Urobilinogen 0.2 Leukocyte Esterase Rfl Negative Imaging Radiologist's impression: Lumbosacral Spine: AP and lateral views Clinical History: Pain Findings: The normal lordotic curve is maintained. There is posterior and interbody fusion from L5 to S1. No other fracture or subluxation seen. There is extensive DISH of the lumbar spine. There is extensive severe facet arthropathy and lumbar spine. Disc spaces are relatively well-preserved. The sacroiliac joints are normally outlined. Impression: Extensive facet arthropathy and DISH of the lumbar spine. Posterior and interbody fusion from L5 to S1. DS: Summary Hospital Course Reason for hospitalization: lumbar radiculopathy Hospital Course: Zechariah Jenkins is a 69 year old male with a past medical history of HTN, CHF, CKD, Sarcoidosis, and JESSEE with CPAP. He was just discharged from [facility] after a hospital stay for acute respiratory failure with hypoxia secondary to PNA and RSV which he was discharged home after he was weaned back to room air. He presented to the ED with complaints of severe lower back pain/strain secondary to his recent episodes of cough and stating he was unable to walk up his For stairs at home. Patient does have a past history of neurosurgery with cage placement and lumbar stenosis. Patient's labs reviewed unremarkable vital stable and lumbar x-ray showed no acute fractures but did show extensive facet arthropathy and DISH of the lumbar spine with a fusion from L5-S1. patient was admitted to the medical unit for pain management with consult for PT /OT for further evaluation. Patient denied any chest pain, shortness a breath, nausea, vomiting, fever chills. patient was admitted overnight for pain management gave a dose of Toradol IV for an anti-inflammatory as well as a dose of Valium for muscle spasm and added a lidocaine patch to his lumbar with an order to physical therapy for evaluation. after administration of medications patient reported improvement to his lower back pain and he ambulated and did well with physical therapy recommending outpatient therapy. I discharge patient home on a few tablets of oral Toradol and Valium but educated encouraged the need for continued activity weight loss for his chronic back pain it was also recommended that he follow-up with his Neurosurgeon for further evaluation as well as a referral to a rail car painter/sandblaster. at time of discharge I also provided an outpatient therapy order to continue his physical and occupational therapy encouraged NSAIDs as needed. he was discharged home with family patient and spouse at bedside agreed and acknowledged discharge plan. Status at Discharge Functional status at discharge: uses cane/walker Overall status at discharge: patient is progressing back to baseline Time Spent with Patient Time attestation: Total time spent providing and/or coordinating discharge services: Time spent: Greater than 30 minutes DS: Admitting Diagnosis Discharge Date 01/23/2025 Admitting Diagnosis Lumbar radiculopathy DS: Discharge Diagnosis Discharge Diagnosis (1) HTN (hypertension): Code(s): I10 - Essential (primary) hypertension Status: Acute (2) CHF (congestive heart failure): Qualifiers: Heart failure chronicity: acute on chronic Heart failure type: diastolic Qualified Code(s): I50.33 - Acute on chronic diastolic (congestive) heart failure Code(s): I50.9 - Heart failure, unspecified Status: Acute (3) Lumbago: Qualifiers: Back pain laterality: left Chronicity: acute Sciatica presence: without sciatica Qualified Code(s): M54.50 - Low back pain, unspecified Code(s): M54.50 - Low back pain, unspecified Status: Acute (4) Muscle spasm: Code(s): M62.838 - Other muscle spasm Status: Acute Plan Disposition: Discharged to home Discharge Plan Discharge Attending physician on discharge: Ellen Mahajan Consulting providers: Jia Vitale Discharging Clinician: Jia Vitale Anticipated Discharge Date/Time: 01/23/25 12:20 Patient Disposition: Home Activity: may shower, as tolerated and other - see discharge instructions Diet: heart healthy Discharge Instructions: Lumbar Radiculopathy: * Use NSAIDs as needed * I have prescribed muscle relaxants as needed as well as a Valium short term to help with any back spasms * Lidocaine Patches have been prescribed and can be placed directly in lumbar remove after 12 hours * I have provided an order for outpatient therapy and Encourage frequent activity as tolerated * I also encourage weight loss which can take some strain of your lumbar * You will need to follow-up with your neurosurgeon as well as recommended referral to a rail car painter/sandblaster for chronic back pain * I have also included information on lower back exercises How can you care for yourself at home? • Keep track of any new symptoms or changes in your symptoms. • Rest until you feel better. • Be safe with medicines. Take your medicines exactly as prescribed. Call your doctor if you think you are having a problem with your medicine. • Do not drive after taking a prescription pain medicine. • Ensure to follow-up with primary care physician as indicated and provide updated medication list provided to you at discharge. When should you call for help? Call 911 anytime you think you may need emergency care. For example, call if: • You passed out (lost consciousness). Call your doctor now or seek immediate medical care if: • You have new symptoms like fever, difficulty breathing, Chest pain, vomiting, or rash. • You have new or different pain. • You are confused and are having trouble thinking clearly. • Your symptoms are getting worse. Watch closely for changes in your health, and be sure to contact your doctor if: • You do not get better as expected. Patient Instructions: Antibiotic Form, Low Back Strain (DC), Acute Low Back Pain (GEN), Lumbar Radiculopathy (GEN), Chronic Back Pain (DC), Back Pain (GEN), Lower Back Exercises (GEN) Patient Language: Palestinian Stand Alone Forms: General Discharge Information Follow-up/Referrals: Denis Best MD [Primary Care Provider] - 1 week Discharge Medications: New furosemide [Lasix] 20 mg tablet 20 mg PO DAILY PRN (Reason: edema) Qty: 20 0RF potassium chloride [Klor-Con 10] 10 mEq tablet extended release 10 meq PO DAILY MDD with lasix use PRN (Reason: edema) Qty: 20 0RF orphenadrine citrate 100 mg tablet extended release 100 mg PO BID PRN (Reason: pain) Qty: 20 0RF hydrocodone-acetaminophen 5-325 mg tablet 1 tablet PO Q8H PRN (Reason: pain) Qty: 20 0RF Rx Instructions: 1-2 tabs per dose azithromycin 500 mg tablet 500 mg PO DAILY 3 Days Qty: 3 0RF cyclobenzaprine 10 mg Tablet 10 mg PO Q8H PRN (Reason: Muscle Spasm) Qty: 30 0RF lidocaine [Lidoderm] 5 % Adhesive Patch,Medicated 1 patch transdermal DAILY Qty: 30 0RF ketorolac 10 mg tablet 10 mg PO Q8H PRN (Reason: pain) Qty: 15 0RF Rx Instructions: maximum total duration of 5 days from all oral, intranasal, or parenteral formulations diazepam [Valium] 5 mg tablet 5 mg PO BID PRN (Reason: muscle spasm) Qty: 10 0RF Continued azithromycin [Zithromax] 250 mg Tablet 500 mg PO DAILY Qty: 2 0RF amoxicillin-pot clavulanate 875-125 mg tablet 1 tablet PO Q12H Qty: 8 0RF hydralazine 100 mg tablet 100 mg PO BID allopurinol 100 mg tablet 100 mg PO BID lovastatin 10 mg tablet 10 mg PO QPM carvedilol 25 mg tablet 25 mg PO Q12H Rx Instructions: must administer with a meal/food Men's 50 Plus Multivitamin 400-20-370 mcg tablet 1 tablet PO DAILY Qty: 1 0RF benzonatate 100 mg capsule 100 mg PO TID PRN (Reason: cough) Qty: 14 0RF albuterol sulfate 90 mcg/actuation HFA aerosol inhaler 1 puff inhalation QID Qty: 6.7 0RF Other Ambulatory Orders: PT Outpatient Eval and Treat (ONCE) Timeframe: [id number] Location: Determined by Patient Ordered By: Jia Vitale Date of admission: 01/22/25 22:21 Primary Care Provider: Denis Best Admitting Provider: Ellen Mahajan Attending physician on admission: Ellen Mahajan Condition: Stable Quality VTE Prophylaxis VTE prophylaxis: mechanical ordered -Patient's previous records reviewed on admission -ER notes reviewed in detail on admission -discussed all findings and current treatment plan with patient/Family/POA -Consultations reviewed for recommendations -Patient's disposition for safe discharge discussed with case preparer and liner Dictation performed by [employer] direct speech recognition software, therefore straw hat washer operator variants and typographical errors may occur. Hospitalist MIPS Advance Care Plan I have confirmed that the patient's Advanced Care Plan is present, code status is documented, or surrogate decision maker is listed in patient medical record.: Yes Medication Reconciliation I have utilized all available resources to obtain, update and review the patients current medications (includes all prescriptions, OTC, herbals, cannabis, and nutritional supplements).: Yes The patient is not eligible for med reconciliation; the patient is in a emergent medical situation where delaying treatment would jeopardize the patients health.: No Heart Failure (Exclusion) Patient has history of Heart Transplant or Left Ventricular Assistive Device?: No IF YES, STOP HERE Heart Failure (Qualifier) Patient has current or prior documentation of LVEF less than or equal to 40%, or mod/servere depressed LVSF?: No IF NO, STOP HERE
--- NOTE | 2025-01-23 14:02 | PC.NURSE ---
Pt discharged home with spouse. Discharge instructions given to both. Medications instructions given to both pt and spouse: purpose, dosesages , times and side effects of all medications. Fall precautions and Follow up appointments reviewed. Pt and spouse verbalized understanding. Pt taken to family car via WC and assisted marcia.
--- NOTE | 2025-01-24 10:50 | PC.NURSE ---
Discharge call back made. No answer.
--- NOTE | 2025-01-26 11:11 | PC.NURSE ---
Spoke with Mariangel, she informs there were no questions or concerns. His back is much better and only taking Tylenol. Has not made appointment with pain management and she informs has not looked into it because it doesn't hurt at this time. Informed Dr Best put him on a inhaler that is too expensive, educted to call office to see if they had discount card or go the internet and look up the [employer] that makes it. On the [employer] website there should be a patient assistance program or a customer service number which she could ask about one.
== END 2025-01-23 13:30 | disposition home or self-care (01) ==
LOC: CHSED 21:00 → CHS2ND 22:27
PROVIDERS: Admitting Provider Internal Medicine; Emergency Provider Emergency Medicine; PCP Internal Medicine; Visit Provider Internal Medicine
DX: M54.50 Low back pain, unspecified (principal); M54.16 Radiculopathy, lumbar region; M62.838 Other muscle spasm; I13.0 Hypertensive heart and chronic kidney disease with heart failure and stage 1 through stage 4 chronic kidney disease, or unspecified chronic kidney disease; I50.33 Acute on chronic diastolic (congestive) heart failure; N18.9 Chronic kidney disease, unspecified; J18.9 Pneumonia, unspecified organism; G25.0 Essential tremor; D86.9 Sarcoidosis, unspecified; G47.33 Obstructive sleep apnea (adult) (pediatric); Z99.89 Dependence on other enabling machines and devices; Z79.51 Long term (current) use of inhaled steroids; Z79.899 Other long term (current) drug therapy
CPT/HCPCS: 36415; 71045; 72100; 80053; 81003; 83880; 84484; 85025; 93005; 96372; 96374; 96375; 96376; 97161; 99285; A9270; G0378; J1885; J2270; J2360; J7512

== ENCOUNTER 2025-02-07 10:04 | Outpatient (CLI) | payer MEDICARE, SELFPAY ==
--- NOTE | ~2025-02-07 | XR_ITS ---
XR chest 2V 02/07/2025 10:27 Indication: Pneumonia. CHF. Procedure: PA and lateral views of the chest Comparison: Comparison to multiple prior studies sequentially, with oldest reviewed study dated 04/06. Findings: Borderline heart size. There is subsegmental atelectasis right midlung. There are calcified granulomas of the left lung. No focal pneumonia, pleural effusion or pneumothorax. No acute osseous abnormality. Impression: 1: Subsegmental atelectasis right mid thorax. Reviewed, dictated and finalized at location A. Impression: 1: Subsegmental atelectasis right mid thorax.
--- OUTSIDE RECORDS SUMMARY | 2025-02-07 10:10 | XMS_ITS | Continuity of Care Document ---
Author Organization [facility] Address [address] [place] [address] [facility] [address] [place] [address] Phone Care Team Providers Care Road Manager Name Role Phone Lauraaba Mckinley Unavailable Unavailable Procedures Procedure Date Office/outpatient Visit, [facility] Advance Directives Directive Yes / No Effective Date File Name No Information Encounters Encounter Description Practice Location Reason(s) For Visit Diagnoses Date Provider Providers Copied on Encounter Office/outpat ient Visit, [facility], [address] [place] [address] [address], [place], [place], [id number], tel:[phone] [facility] No Information 3-201 0 Carline Mckinley. [address] [facility] [address], [address], [place]. tel:[phone] Family History Family Member Type Diagnosis Age At Onset No Information Payers Payer name Insurance type Covered green party ID Authoriza tiayana(s) César Alejandro [id number] Social History Type Description Quantity Date Captured [...]
--- OUTSIDE RECORDS SUMMARY | 2025-02-07 10:10 | XMS_ITS | Clinical Summary ---
Author Organization [facility] Address [address] [place] [address] Care Team Providers Care Airborne Missions Systems Name Role Phone Unavailable Primary Care Provider Unavailabl e Source Comments [facility],non-owned Affiliates and Associated Physician Practices is amultiple site organization consisting of ambulatory clinics and hospital sitesin [place], [place], [place] and [place]. This disclosure is being madepursuant to the Care Everywhere program and may not contain all information available regarding this patient. 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
[2025-02-07 10:21] LABS: Hemoglobin 13.3 g/dL (12.4-15.3); Mean Corpuscular HGB Conc 31.7 g/dL (32-36); Mean Corpuscular Hemoglobin 29.1 pg (27.0-31.0); Mean Corpuscular Volume 91.9 fL (78.0-102.0); Mean Platelet Volume 9.2 fl (8.7-11.0); Platelet Count Result 200 K/mm3 (150-420); Red Blood Count 4.57 M/mm3 (4.70-6.10); Red Cell Distribution Width 13.4 % (11.6-14.4); White Blood Count 6.8 K/mm3 (4.8-10.8)
[2025-02-07 10:51] LABS: Alanine Aminotransferase 26 U/L (6-50); Albumin Level 3.8 g/dL (3.5-5.1); Alkaline Phosphatase 54 U/L (38-126); Anion Gap 3 mmol/L (4-12); Aspartate Amino Transferase 22 U/L (17-59); Bilirubin,Total 0.4 mg/dL (0.2-1.3); Blood Urea Nitrogen 18 mg/dL (9-20); Calcium 9.3 mg/dL (8.4-10.2); Carbon Dioxide 27 mmol/L (22-30); Chloride 110 mmol/L (98-107); Estimated Glomerular Filt Rate 60; Glucose 89 mg/dL (65-110); Osmolality Calculated 290 mOsm/kg (285-295); Potassium 4.2 mmol/L (3.4-5.0); Sodium 140 mmol/L (137-145); Total Protein 5.9 g/dL (6.3-8.2)
[2025-02-07 11:00] LABS: NT Pro B Type Natriuretic Pept 199 pg/mL (19.9-100)
== END 2025-02-07 10:05 | disposition home or self-care (01) ==
PROVIDERS: PCP Internal Medicine; Visit Provider Internal Medicine
DX: J18.8 Other pneumonia, unspecified organism (principal); N18.2 Chronic kidney disease, stage 2 (mild); I50.9 Heart failure, unspecified; J98.11 Atelectasis
CPT/HCPCS: 36415; 71046; 80053; 83880; 85027

== ENCOUNTER 2025-05-27 09:33 | Emergency (ER) | payer MEDICARE, SELFPAY ==
--- OUTSIDE RECORDS SUMMARY | 2009-09-26 06:15 | XMS_ITS | Continuity of Care Document ---
Author Organization [facility] Address [address] [place] [address] [facility] [address] [place] [address] Phone Care Team Providers Care Ship Boss Name Role Phone Lauraaba Mckinley Unavailable Unavailable Procedures Procedure Date Office/outpatient Visit, [facility] Advance Directives Directive Yes / No Effective Date File Name No Information Encounters Encounter Description Practice Location Reason(s) For Visit Diagnoses Date Provider Providers Copied on Encounter Office/outpat ient Visit, [facility], [address] [place] [address] [address], [place], [place], [id number], tel:[phone] [facility] No Information 3-201 0 Carline Mckinley. [address] [facility] [address], [address], [place]. tel:[phone] Family History Family Member Type Diagnosis Age At Onset No Information Payers Payer name Insurance type Covered green party ID Authoriza tiayana(s) César lAejandro [id number] Social History Type Description Quantity Date Captured [...]
--- OUTSIDE RECORDS SUMMARY | 2009-09-26 06:15 | XMS_ITS | Continuity of Care Document ---
Author Organization [facility] Address [address] [place] [address] [facility] [address] [place] [address] Phone Care Team Providers Care Program Management Manager Name Role Phone Lauraaba Mckinley Unavailable Unavailable Procedures Procedure Date Office/outpatient Visit, [facility] Advance Directives Directive Yes / No Effective Date File Name No Information Encounters Encounter Description Practice Location Reason(s) For Visit Diagnoses Date Provider Providers Copied on Encounter Office/outpat ient Visit, [facility], [address] [place] [address] [address], [place], [place], [id number], tel:[phone] [facility] No Information 3-201 0 Carline Mckinley. [address] [facility] [address], [place], [address], [place]. tel:[phone] Family History Family Member Type Diagnosis Age At Onset No Information Payers Payer name Insurance type Covered democrat ID Authoriza tiayana(s) César Alejandro [id number] Social History Type Description Quantity Date Captured [...]
--- OUTSIDE RECORDS SUMMARY | 2025-05-27 09:37 | XMS_ITS | Clinical Summary ---
Author Organization [facility] Address [address] [place] [address] Care Team Providers Care Leather Tacker Name Role Phone Unavailable Primary Care Provider [...] 10:10 AM CDT Height 170.2 cm (5' 7) 04/16/2012 10:10 AM CDT Body Mass Index [...] COVID-19 Vaccine ( - 2023-2 5 season) 2025 RSV Immunization or 60+ Years (1 - [...]
--- NOTE | 2025-05-27 09:41 | ED.SKABFB ---
HPI - Skin/Abscess/Foreign Bdy General Chief complaint: Skin/Abscess/Foreign Body Stated complaint: Rash on L arm Time Seen by Provider: 05/27/25 09:50 Source: patient Mode of arrival: ambulatory Limitations: no limitations History of Present Illness HPI narrative: Zechariah is a 69-year-old male patient presenting to the clinic today with complaints of a itchy red swollen blistery rash to the left forearm and to the left abdomen. He reports on Thursday he developed a rash. 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 Has applied bleach and rubbing alcohol to the area. Related Data Home Medications ?Medication ?Instructions ?Recorded ?Confirmed ?Last Taken ?Type allopurinol 100 mg tablet 100 mg PO BID 04/18/21 01/22/25 01/16/25 History carvedilol 25 mg tablet 25 mg PO Q12H 04/18/21 01/22/25 01/16/25 History lovastatin 10 mg tablet 10 mg PO QPM 04/18/21 01/22/25 01/15/25 History hydralazine 100 mg tablet 100 mg PO BID 07/22/24 01/22/25 01/16/25 History Allergies Allergy/AdvReac Type Severity Reaction Status Date / Time No Known Allergies Allergy Mild Verified 05/27/25 09:54 Review of Systems Review of Systems: Pertinent positives per HPI. Patient denies any fever, chills, headache, visual changes, dizziness, cough, runny nose, sore throat, shortness of breath, chest pain, palpitations, nausea, vomiting, diarrhea, constipation, abdominal pain, or any urinary issues. [facility] Past Medical History Medical History Sarcoidosis Dx in his 40's, was on prednisone for 18 months and this improved. In remission. Impaired fasting glucose Hyperuricemia GERD (gastroesophageal reflux disease) Essential tremor CKD (chronic kidney disease) Sciatica HTN (hypertension) Family History Family History Father Malignant neoplasm of prostate Lung cancer Mother Diabetes mellitus Heart disease Social History Social History Smoking status: Never smoker Second hand tobacco smoke exposure: No Alcohol intake: former Alcohol use details: 2 beers/week Substance use: never Substance use type: does not use Do You Feel Safe in your Home?: Yes Lack of Transportation: No Lack of Food: Never True Current Housing: I Have Housing Concerned About Future Housing: No Difficulty Paying Gas/Electric Bills: No Difficulty Paying for Meds: No Currently Unemployed: No Education: High School Diploma/GED Difficulty w/ Childcare or Family Care: No Living arrangements: with family Spiritual care concerns: No Comments At the time of my signature, I reviewed and agree with the nursing past medical, surgical, social, and family history. There is no relevant family history pertinent to the patient complaint. Exam Narrative: General: Well-developed, well nourished, in no apparent distress Head: Normocephalic, atraumatic. Cardio: Regular rate and rhythm, s1 and s2 normal, no murmur appreciated. Resp: Clear to auscultation bilaterally, no rhonchi, rales, wheezing or rubs. Integumentary: [place], warm, and dry, red, raised, blistery itchy rash to the left forearm and the left abdomen consistent with poison char dermatitis Course Course Emergency Course: Portions of this record may have been created with voice recognition software. Level of Care: Express Care Visit Vital Signs Vital signs: Vital Signs Temperature 36.3 C L 05/27/25 09:47 Pulse Rate 70 05/27/25 09:47 Respiratory Rate 18 05/27/25 09:47 Blood Pressure 119/57 L 05/27/25 09:47 Pulse Oximetry 98 05/27/25 09:47 Oxygen Delivery Room Air 05/27/25 09:47 Temperature 36.3 C L 05/27/25 09:47 Pulse Rate 70 05/27/25 09:47 Respiratory Rate 18 05/27/25 09:47 Blood Pressure 119/57 L 05/27/25 09:47 Pulse Oximetry 98 05/27/25 09:47 Oxygen Delivery Room Air 05/27/25 09:47 Vital signs reviewed MDM - Skin/Abscess/Foreign Bdy MDM Narrative Medical decision making narrative: At the time of visit patient is resting comfortably on the exam table. Patient appears to be nontoxic. Complaints of a itchy red swollen blistery rash to the left forearm and to the left abdomen. He reports on Thursday he developed a rash. 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 Has applied bleach and rubbing alcohol to the area. On exam patient has red, raised, blistery itchy rash to the left forearm and the left abdomen consistent with poison char dermatitis Plan: I suspect patient has poison char dermatitis. Prescription for triamcinolone cream and taper dose prednisone was sent to the pharmacy. Supportive measures were discussed with the patient and they voiced understanding discharge instructions and agrees to treatment plan. Return precautions reviewed Differential Diagnosis Differential diagnosis: Likely abscess of skin or subcutaneous tissue, viral exanthem, dermatophytosis, urticaria, herpes zoster, allergic reaction to drug, cellulitis, eczema, insect bites, impetigo and contact dermatitis Discharge Plan Discharge Clinical Impression: Allergic dermatitis due to poison char Patient Disposition: Home Condition: Stable Instructions: Antibiotic Form, Poison Char (ED), Dermatitis (ED) Additional Instructions: Apply triamcinolone cream as directed Take prednisone as directed Avoid hot showers May apply calamine lotion to rash Avoid scratching as this can cause a secondary infection May take benadryl 25-50mg every 6 hours as needed for itching. Follow up with your PCP in 3-5 days if symptoms persist or sooner if they worsen Go to the Emergency Room if symptoms worsen- fever, rash spreading with treatment, shortness of breath, tongue swelling, drooling, or chest pain Patient Language: German Prescriptions: New prednisone 10 mg tablet 10 mg PO DAILY Qty: 30 0RF Rx Instructions: 60mg po daily on day 1, 40mg po daily on days 2-4, 30mg po daily on days 5-6, 20mg po daily on days 7-8, 10mg po daily on days 9-10 triamcinolone acetonide 0.1 % cream 1 applic topical BID 7 Days Qty: 30 0RF No Action hydralazine 100 mg tablet 100 mg PO BID allopurinol 100 mg tablet 100 mg PO BID lovastatin 10 mg tablet 10 mg PO QPM carvedilol 25 mg tablet 25 mg PO Q12H Rx Instructions: must administer with a meal/food Men's 50 Plus Multivitamin 400-20-370 mcg tablet 1 tablet PO DAILY Qty: 1 0RF Follow-up/Referrals: UNKNOWN,DOCTOR [Primary Care Provider] Time of Disposition: 10:10 Quality NIHSS Nursing Documentation ED NIHSS nursing documentation: reviewed/agree
[2025-05-27 09:47] VITALS: BP 119/57; PULSE 70; RESP 18; TEMP 36.3; O2SAT 98
== END 2025-05-27 10:15 | disposition home or self-care (01) ==
PROVIDERS: Emergency Provider Nurse Practitioner Family
DX: L23.7 Allergic contact dermatitis due to plants, except food (principal); I12.9 Hypertensive chronic kidney disease with stage 1 through stage 4 chronic kidney disease, or unspecified chronic kidney disease; N18.9 Chronic kidney disease, unspecified; K21.9 Gastro-esophageal reflux disease without esophagitis
CPT/HCPCS: 99213; G0463

== ENCOUNTER 2025-06-25 12:49 | Emergency (ER) | payer MEDICARE, SELFPAY ==
--- OUTSIDE RECORDS SUMMARY | 2009-09-26 06:15 | XMS_ITS | Continuity of Care Document ---
Author Organization [facility] Address [address] [place] [address] [facility] [address] [place] [address] Phone Care Team Providers Care Pig Breeder Name Role Phone Lauraaba Mckinley Unavailable Unavailable Procedures Procedure Date Office/outpatient Visit, [facility] Advance Directives Directive Yes / No Effective Date File Name No Information Encounters Encounter Description Practice Location Reason(s) For Visit Diagnoses Date Provider Providers Copied on Encounter Office/outpat ient Visit, [facility], [address] [place] [address] [address], [place], [place], [id number], tel:[phone] [facility] No Information 3-201 0 Carline Mckinley. [address] [facility] [address], [address], [place]. tel:[phone] Family History Family Member Type Diagnosis Age At Onset No Information Payers Payer name Insurance type Covered libertarian ID Authoriza tiayana(s) César Alejandro [id number] Social History Type Description Quantity Date Captured [...]
--- NOTE | ~2025-06-25 | XR_ITS ---
XR lumbar spine 2-3V Indication: Lt. side low back pain x2 days; worsening. NKI Comparison: None Findings: Posterior fixation L5-S1 with disc prostheses, the hardware is intact, no acute fracture. Severe loss of disc height at L1-2, L3-4 and L4-5. Soft tissues unremarkable Impression: No acute abnormality. Reviewed, dictated and finalized at location P. Impression: No acute abnormality.
--- NOTE | 2025-06-25 13:01 | ED.BACK ---
HPI - Back Pain/Injury General Chief Complaint: Back Pain/Injury Stated Complaint: left back pain Source: patient Mode of arrival: ambulatory Limitations: no limitations History of Present Illness HPI Narrative: Patient is a 69-year-old male with left lower back pain more so to the paraspinal region then the midline. No injury. MD elicited complaint: back pain Pertinent past history: prior back pain Onset (ago): day(s) (One) Timing: constant Severity: moderate Pain scale (0-10): 6 Similar Symptoms Previously: Yes Quality: burning and sharp Location: lumbar spine Radiation: none Exacerbating factors: movement Relieving factors: immobilization Context: turning/twisting and bending Associated symptoms: denies other symptoms Treatments prior to arrival: NSAIDS and acetaminophen Work related injury: No Related Data Home Medications ?Medication ?Instructions ?Recorded ?Confirmed ?Last Taken ?Type allopurinol 100 mg tablet 100 mg PO BID 04/18/21 01/22/25 01/16/25 History carvedilol 25 mg tablet 25 mg PO Q12H 04/18/21 01/22/25 01/16/25 History lovastatin 10 mg tablet 10 mg PO QPM 04/18/21 01/22/25 01/15/25 History hydralazine 100 mg tablet 100 mg PO BID 07/22/24 01/22/25 01/16/25 History Allergies Allergy/AdvReac Type Severity Reaction Status Date / Time No Known Allergies Allergy Mild Verified 05/27/25 09:54 Review of Systems Review of Systems: All systems reviewed & are unremarkable except as noted in HPI and below Constitutional: Constitutional: Reports no additional constitutional complaints Eyes: Eyes: Reports no additional eye complaints ENT: Reports system reviewed and no additional complaints, except as documented Cardiovascular: Cardiovascular: Reports no additional cardiovascular complaints Respiratory: Respiratory: Reports no additional respiratory complaints Gastrointestinal: Gastrointestinal: Reports no additional gastrointestinal complaints Genitourinary: Genitourinary: Reports no additional male genitourinary complaints Musculoskeletal: Musculoskeletal: Reports no additional musculoskeletal complaints Integumentary/Breasts: Skin/Breast: Reports system reviewed and no additional complaints, except as docu Neurologic: Reports system reviewed and no additional complaints, except as documented Psychiatric: Psychiatric: Reports no additional psychiatric complaints Endocrine: Endocrine: Reports no additional endocrine complaints Hematologic/Lymphatic: Hematologic/Lymphatic: Reports no additional hematologic/lymphatic complaints Allergic/Immunologic: Allergic/Immunologic: Reports no additional allergic/immunologic complaints PMFSH Past Medical History Medical History Sarcoidosis Dx in his 40's, was on prednisone for 18 months and this improved. In remission. Impaired fasting glucose Hyperuricemia GERD (gastroesophageal reflux disease) Essential tremor CKD (chronic kidney disease) Sciatica HTN (hypertension) Family History Family History Father Malignant neoplasm of prostate Lung cancer Mother Diabetes mellitus Heart disease Social History Social History Smoking status: Never smoker Second hand tobacco smoke exposure: No Alcohol intake: former Alcohol use details: 2 beers/week Substance use: never Substance use type: does not use Do You Feel Safe in your Home?: Yes Lack of Transportation: No Lack of Food: Never True Current Housing: I Have Housing Concerned About Future Housing: No Difficulty Paying Gas/Electric Bills: No Difficulty Paying for Meds: No Currently Unemployed: No Education: High School Diploma/GED Difficulty w/ Childcare or Family Care: No Living arrangements: with family Spiritual care concerns: No Exam Const: General: healthy appearing Nutritional Appearance: well nourished Orientation/consciousness: patient oriented x3 HENMT: Head: normal to inspection Ears: external ears normal Face/Nose/Sinus: Normal external nose present Eyes: Conjunctivae: conjunctivae normal Pupils: Equal, round and reactive pupils present EOM: EOMs intact bilaterally Neck: Neck: normal visual inspection Chest: Chest palpation & inspection: normal inspection of the chest Resp: Effort & Inspection: normal respiratory effort and not labored Auscultation: clear to auscultation bilaterally and no crackles Cardio: Rate: regular rate Rhythm: regular rhythm Heart sounds: no murmurs GI: Inspection: non-distended GI Palp: Yes Soft to palpation and No Tenderness to palpation present (GI) Auscultation: normal bowel sounds : General: Yes bladder normal to palpation Back/Spine/Pelvis: Back: no CVA tenderness Other: Tender left paraspinal muscles and tightness appreciated without fasciculations; midline without deformity or pain Skin: General skin exam: normal color Rashes: no rashes Wounds: no wounds Neuro: General: patient oriented x3, moves all extremities and no meningeal signs Extrem: General: normal to inspection and no clubbing, cyanosis or edema Psych: Mental Status: mental status grossly normal Affect: normal affect Attitude: cooperative Course Vital Signs Vital signs: Vital Signs Temperature 36.8 C 06/25/25 13:20 Pulse Rate 62 06/25/25 13:20 Respiratory Rate 18 06/25/25 13:20 Blood Pressure 139/65 06/25/25 13:20 Pulse Oximetry 95 06/25/25 13:20 Oxygen Delivery Room Air 06/25/25 13:20 Temperature 36.0 C L 06/25/25 15:48 Pulse Rate 57 L 06/25/25 15:48 Respiratory Rate 20 06/25/25 15:48 Blood Pressure 146/77 H 06/25/25 15:48 Pulse Oximetry 97 06/25/25 15:48 Oxygen Delivery Room Air 06/25/25 15:48 MDM - Back Pain/Injury MDM Narrative Medical decision making narrative: Patient is a 69-year-old male with left lower back pain over the past day. No injury. X-ray. Pain control. Imaging Data Attestation: I personally reviewed and interpreted this imaging study as follows: Radiologist's impression: X-ray lumbar spine is negative for acute process Discharge Plan Discharge Clinical Impression: Lumbago Qualifiers: Chronicity: acute Back pain laterality: left Sciatica presence: without sciatica Qualified Code(s): M54.50 - Low back pain, unspecified Patient Disposition: Home Condition: Stable Instructions: Acute Low Back Pain (ED) Patient Language: Bulgarian Prescriptions: New hydrocodone-acetaminophen 5-325 mg tablet 1 tablet PO Q8H PRN (Reason: pain) Qty: 20 0RF Rx Instructions: 1-2 tabs per dose No Action hydralazine 100 mg tablet 100 mg PO BID allopurinol 100 mg tablet 100 mg PO BID lovastatin 10 mg tablet 10 mg PO QPM carvedilol 25 mg tablet 25 mg PO Q12H Rx Instructions: must administer with a meal/food Men's 50 Plus Multivitamin 400-20-370 mcg tablet 1 tablet PO DAILY Qty: 1 0RF Follow-up/Referrals: Denis Best MD [Primary Care Provider, Internal Medicine] Time of Disposition: 15:32
[2025-06-25 13:20] VITALS: BP 139/65; PULSE 62; RESP 18; TEMP 36.8; O2SAT 95
--- OUTSIDE RECORDS SUMMARY | 2025-06-25 14:08 | XMS_ITS | Clinical Summary ---
Author Organization [facility] Address [address] [place] [address] Care Team Providers Care Sap Bpc Developer Name Role Phone Unavailable Primary Care Provider Unavailabl e Source Comments [facility],non-owned Affiliates and Associated Physician Practices is amultiple site organization consisting of ambulatory clinics and hospital sitesin [place], [place], [place] and [place]. This disclosure is being madepursuant to the Care Everywhere program and may not contain all information available regarding this patient. 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
[2025-06-25] MEDS: HYDROcodone/acetaminophen (*CRX) 10-325 MG TABLET 1 TAB PO (15:00)
[2025-06-25 15:48] VITALS: BP 146/77; PULSE 57; RESP 20; TEMP 36; O2SAT 97
== END 2025-06-25 16:02 | disposition home or self-care (01) ==
PROVIDERS: Emergency Provider Emergency Medicine; PCP Internal Medicine
DX: M54.50 Low back pain, unspecified (principal); I12.9 Hypertensive chronic kidney disease with stage 1 through stage 4 chronic kidney disease, or unspecified chronic kidney disease; N18.9 Chronic kidney disease, unspecified
CPT/HCPCS: 72100; 99283; A9270; J7512

== ENCOUNTER 2025-06-27 10:43 | Outpatient (RCR) | payer MEDICARE, SELFPAY ==
--- NOTE | 2025-06-27 12:04 | OPREHPOC ---
Outpatient Therapy Plan of Care This is a Multidisciplinary Plan of Care that may contain components documented by all disciplines (PT, OT, and ST.) PT Problem 1 PT Problem #1 Knowledge Deficit PT Goal 1 Goal / Goal Update The patient will be independent in a home exercise program. Target Visit 2 PT Problem 2 PT Problem #2 Pain PT Goal 1 Goal / Goal Update The patient will report no greater than 3/10 low back pain with sit to stand transfers and ambulating household distances. Target Visit 12 PT Problem 3 PT Problem #3 Impaired Functional Mobility PT Goal 1 Goal / Goal Update The patient will demonstrate 30% or less self perceived disability per the Back Index questionnaire. The patient will ambulate 200 feet with the least restrictive device to return to household ambulation. The patient will demonstrate the ability to transfer sit to stand without using his UE to push on the thighs. Target Visit 12
--- NOTE | 2025-06-27 12:04 | PTOPEVAL1 ---
Assessment and note entered by Miryam Bajwa, PT Evaluation Information Assessment Status Evaluation ICD-10 Condition Codes (PT) Pain in low back M54.50 Onset 06/23/25 Subjective Information Zechariah Jenkins reports he started having low back pain again on 06/23/25. He reports he has a history of several back surgeries with the most recent being in 2018. He had been helping his with cleaning and organizing prior to the onset of the back pain and feels he may have moved the wrong way. He notes the pain is in the left lower back and does not go down his leg. He has worse pain when he stands and tries to walk. He has a walker and a cane that he would use occasionally prior to his return of pain but has been using his cane all the time now. He went to the ER on 06/25 due to severe pain. He had a x-ray performed and was prescribed pain medicine. He went to his PCP on 06/26/25 and was referred to PT and pain management for a possible injection. Reported Pain Level Pain Score 0: Self Report Assessment PT Clinical Summary Zechariah Jenkins presents with acute left lower back pain that started on 06/23/25 after doing some household cleaning and organizing. He had worsening pain and went to the ER on 06/25/25 and was given medication. He saw his PCP on 06/26/25 and was referred to PT and pain management. The patient has a history of a lumbar spine fusion surgery performed in 2018 and he has been on disability since then. He demonstrates guarded sit to stand transfers, impaired gait, decreased and painful lumbar AROM, and tenderness in the left lower lumbar paraspinals. He was unable to tolerate supine or prone today. He will benefit from skilled PT to address these limitations, reduce his pain, and improve functional mobility. Plan of Care Interventions Electrical Stimulation,Gait Training,Hot Pack/Cold Pack,Manual Therapy,Neuro Re-education,Patient/ Caregiver Education,Therapeutic Activities, Therapeutic Exercise PT Services Indicated Yes Treatment Frequency and 3 times a week for 12 visits Duration These treatments will address the objective and functional deficits as defined above. The patient will be advanced safely and appropriately in order for the patient to progress towards his/her prior level of function. Additional exercises will be introduced and as well as a comprehensive home exercise program upon discharge, if needed, ?to ensure carryover of functional gains achieved in the clinic. This treatment plan has been reviewed and agreement upon by the patient.
--- NOTE | 2025-08-31 08:52 | PCPTNOTE ---
Pt was last seen in skilled PT on 07/07/25. He was having worse pain and was told by pain management to hold on PT and get injections. He is discharged. -Miryam Bajwa, PT
== END 2025-07-07 20:00 | disposition home or self-care (01) ==
LOC: CHSPT 10:43
PROVIDERS: PCP Internal Medicine; Visit Provider Internal Medicine
DX: M54.50 Low back pain, unspecified (principal)
CPT/HCPCS: 97014; 97110; 97140; 97150; 97161; G0283

== ENCOUNTER 2025-07-22 09:54 | Outpatient (CLI) | payer MEDICARE, SELFPAY ==
--- OUTSIDE RECORDS SUMMARY | 2009-09-26 05:15 | XMS_ITS | Continuity of Care Document ---
Author Organization [facility] Address [address] [place] [address] [facility] [address] [place] [address] Phone Care Team Providers Care Agricultural Engineering Technicians Name Role Phone Lauraaba Mckinley Unavailable Unavailable Procedures Procedure Date Office/outpatient Visit, [facility] Advance Directives Directive Yes / No Effective Date File Name No Information Encounters Encounter Description Practice Location Reason(s) For Visit Diagnoses Date Provider Providers Copied on Encounter Office/outpat ient Visit, [facility], [address] [place] [address] [address], [place], [place], [id number], tel:[phone] [facility] No Information 3-201 0 Carline Mckinley. [address] [facility] [address], [place], [address], [place]. tel:[phone] Family History Family Member Type Diagnosis Age At Onset No Information Payers Payer name Insurance type Covered republican ID Authoriza tiayana(s) César Alejandro [id number] Social History Type Description Quantity Date Captured Comments Sex Male Smoking Status No Information Chief Complaint And Reason For Visit No Information Reason For Referral Reason For Referral No Information History Of Present Illness Encounter Date Complaint History Of Prese nt Illness No Information Functional Status Date Functional Assessmen t No Information Instructions Date Instruction Additional Infor mation No Information Assessments Type Assessment Date No Information Patient Care Teams Name Effective Dates (start - stop) Status Members No Information
--- NOTE | ~2025-07-22 | MR_ITS ---
EXAMINATION: MR lumbar spine wo con DATE: 07/22/2025 12:08 INDICATION: Low back pain. TECHNIQUE: Magnetic resonance imaging (MRI) of the lumbar spine was performed without intravenous contrast. Sequences included sagittal T2-weighted FSE, sagittal T2-weighted FS FSE, sagittal T1-weighted FSE, and axial T2-weighted FSE. COMPARISON: Lumbar spine radiographs 06/25/2025 FINDINGS: There is 3 degrees dextrocurvature of lumbar spine. There is 6 mm anterolisthesis of L5 on S1. There is mild chronic anterior wedging of T12 and L1 vertebral bodies. There are changes of anterior posterior fusion procedures at L5-S1 with interbody device and pedicle screws. Intervertebral disc heights are normal. Epidural lipomatosis is noted. The distal spinal cord signal intensity is normal. The conus medullaris is at L1. The following disc levels are specifically discussed: L1-L2: The disc is mildly bulging. There is severe bilateral facet joint osteoarthritis. There is mild bilateral neural foraminal stenosis. There is mild central canal stenosis. L2-L3: The disc does not extend beyond the endplate margin. There is severe bilateral facet joint osteoarthritis. There is no neural foraminal stenosis. There is mild central canal stenosis. L3-L4: The disc does not extend beyond the endplate margin. There is moderate right and severe left facet joint osteoarthritis. There is no neural foraminal stenosis. There is no central canal stenosis. L4-L5: The disc is bulging and has an annular fissure. There is severe bilateral facet joint osteoarthritis. There is mild bilateral neural foraminal stenosis. There is mild central canal stenosis. L5-S1: There is mild bilateral facet joint hypertrophy. There is mild bilateral neural foraminal stenosis. There is no central canal stenosis. IMPRESSION: 1. Mild lumbar spondylosis. 2. Anterior and posterior fusion procedures at L5-S1. Reviewed, dictated and finalized at location E. NDANCE SECRETARY
--- OUTSIDE RECORDS SUMMARY | 2025-07-22 09:58 | XMS_ITS | Clinical Summary ---
Author Organization [facility] Address [address] [place] [address] Care Team Providers Care Media Coordinator Name Role Phone Unavailable Primary Care Provider Unavailabl e Source Comments [facility],non-owned Affiliates and Associated Physician Practices is amultiple site organization consisting of ambulatory clinics and hospital sitesin [place], [place] and [place]. This disclosure is being madepursuant to the Care Everywhere program and may not contain all information available regarding this patient. 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
--- OUTSIDE RECORDS SUMMARY | 2025-07-22 09:58 | XMS_ITS | Clinical Summary ---
Author Organization [facility] Address [facility] [place] [address] Care Team Providers Care Western Felt Hat Blocker Name Role Phone Unavailable Primary Care Provider [...] of 2) 12/13/2005 COVID-19 Vaccine ( - 2024-2 6 season) 2025 Influenza Adult (#1) 2025 RSV Immunization or 60+ Years (1 - 1-dose 75+ series) 12/13/2030 Hepatitis A Vaccines Aged Out No long er eligible based on patient's age to complete this topic Meningococcal B Vaccine Aged Out No l onger eligible based on patient's age to complete this topic Meningococcal Vaccine Aged Out No fahad vanita eligible based on patient's age to complete this topic RSV Immunizations Under 20 Months Aged Out No longer eligible based on patient's age to complete this topic
== END 2025-07-22 09:55 | disposition home or self-care (01) ==
LOC: CHSIMG 09:56
PROVIDERS: PCP Internal Medicine; Visit Provider Internal Medicine
DX: M54.50 Low back pain, unspecified (principal); M43.06 Spondylolysis, lumbar region; Z98.1 Arthrodesis status
CPT/HCPCS: 72148

== ENCOUNTER 2025-08-28 00:15 | Day surgery (SDC) | payer MEDICARE, SELFPAY ==
[2025-08-07 14:30] VITALS: BMI 56.5
--- OUTSIDE RECORDS SUMMARY | 2025-08-28 00:18 | XMS_ITS | Clinical Summary ---
Author Organization [facility] Address [address] [place] [address] Care Team Providers Care Dining Car Waiter/Waitress Name Role Phone Unavailable Primary Care Provider Unavailabl e Source Comments [facility],non-owned Affiliates and Associated Physician Practices is amultiple site organization consisting of ambulatory clinics and hospital sitesin [place], [place], [place] and [place]. This disclosure is being madepursuant to the Care Everywhere program and may not contain all information available regarding this patient. 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
--- OUTSIDE RECORDS SUMMARY | 2025-08-28 00:18 | XMS_ITS | Clinical Summary ---
Author Organization [facility] Address [facility] [place] [address] Care Team Providers Care Milk Receiver Name Role Phone Unavailable Primary Care Provider [...]
[2025-08-28 09:11] VITALS: BP 161/89; PULSE 61; RESP 20; TEMP 36.2; O2SAT 100
[2025-08-28] MEDS: LACTATED RINGERS 1,000 ML 150 ML IV CONT (09:25)
--- NOTE | 2025-08-28 09:35 | WPDANESEPPF ---
Anes - Initial Pre Proc Eval Procedure: Operation Date: 08/28/25 10:00 Proposed Procedures p Screening Colonoscopy - Osmar Cabrera DO Date/Time: 08/28/25 09:35 Surgeon: Osmar Cabrera DO Pre Op Diagnosis: Neoplasm screening Patient Data Age: 69 Gender: M Height: 1.68 m Weight: 157.8 kg Last Vital Signs Temp 97.1 F L 08/28/25 09:11 Pulse 61 08/28/25 09:11 Resp 20 08/28/25 09:11 BP 161/89 H 08/28/25 09:11 Pulse Ox 100 08/28/25 09:11 O2 Del Method Room Air 08/28/25 09:11 Allergies Allergy/AdvReac Type Severity Reaction Status Date / Time No Known Allergies Allergy Mild Verified 08/28/25 09:09 Home Medications ?Medication ?Instructions ?Recorded ?Confirmed ?Type allopurinol 100 mg tablet 100 mg PO BID 04/18/21 08/28/25 History carvedilol 25 mg tablet 25 mg PO Q12H 04/18/21 08/28/25 History lovastatin 10 mg tablet 10 mg PO QPM 04/18/21 08/28/25 History mgwpdptugfbr-zei-dcgqa acid-vit 1 tablet PO DAILY #1 tablet 04/18/21 08/28/25 Rx K-lycop 400 mcg-20 mcg-370 mcg tablet (Men's 50 Plus Multivitamin) hydralazine 100 mg tablet 100 mg PO BID 07/22/24 08/28/25 History hydrocodone 5 mg-acetaminophen 325 1 tablet PO Q8H PRN pain #20 tabs 06/25/25 08/07/25 Rx mg tablet cyclobenzaprine 15 mg 15 mg PO QPM PRN muscle spasm 07/28/25 08/07/25 History capsule,extended release 24 hr Patient hx anesthesia problems: none Family hx anesthesia problems: none Results Review: All pre-operative results and documents have been reviewed as part of the pre-operative evaluation. [facility] Past Medical History Medical History Sarcoidosis Dx in his 40's, was on prednisone for 18 months and this improved. In remission. Impaired fasting glucose Hyperuricemia GERD (gastroesophageal reflux disease) Essential tremor CKD (chronic kidney disease) Sciatica HTN (hypertension) Family History Family History Father Malignant neoplasm of prostate Lung cancer Mother Diabetes mellitus Heart disease Social History Social History Smoking status: Never smoker Second hand tobacco smoke exposure: No Alcohol intake: former Alcohol use details: 2 beers/week Substance use: never Substance use type: does not use Lack of Transportation: No Lack of Food: Never True Current Housing: I Have Housing Concerned About Future Housing: No Difficulty Paying Gas/Electric Bills: No Difficulty Paying for Meds: No Currently Unemployed: No Education: High School Diploma/GED Difficulty w/ Childcare or Family Care: No Living arrangements: with family Spiritual care concerns: No Anes - Eval Final PreProcedure Day of Procedure 08/28/25 09:35 Patient weight: morbidly obese Lungs: normal air movement Airway: Mallampati scale class II and special considerations (Large byers. ) Neurological: alert and oriented Last oral intake: >/= 8 hours ASA classification: IV Emergent: no Anesthetic plan: proceed Anesthesia type and monitoring: general GIVS and standard monitoring Results Review: All pre-operative results and documents have been reviewed as part of the pre-operative evaluation. BMI 56, HTN, hyperlipidemia, JESSEE on CPAP, activity very limited by back pain/cage, pt can walk short distances w cane. Informed Consent: The patient's anesthetic plan and its attendant risks and benefits were discussed with the patient/family/POA. Questions were solicited and answers provided to the satisfaction of the patient/family/POA.
--- NOTE | 2025-08-28 09:50 | PM.IMHP2 ---
H&P: HPI History of Present Illness Date/Time: 08/28/25 09:50 Chief Complaint: Screening for colorectal cancer Narrative: This is a 69-year-old man who presents for colonoscopy. His last colonoscopy was 10 years ago and was normal. He denies any hematochezia or melena. He denies family history of colon cancer. Review of Systems Review of Systems: All systems reviewed & are unremarkable except as noted in HPI and below Constitutional: Constitutional: Denies chills, Denies fever(s), Denies headache(s) and Denies weight loss Eyes: Eyes: Denies change in vision ENT: Denies dizziness, Denies headache(s), Denies neck mass and Denies throat swelling Cardiovascular: Cardiovascular: Denies chest pain, Denies lightheadedness and Denies dyspnea Respiratory: Respiratory: Denies cough, Denies dyspnea and Denies wheezing Gastrointestinal: Gastrointestinal: Denies abdominal pain, Denies change in bowel habits, Denies nausea and Denies vomiting Genitourinary: Genitourinary: Denies hematuria and Denies dysuria Musculoskeletal: Musculoskeletal: Reports as per HPI Integumentary/Breasts: Skin/Breast: Reports as per HPI Neurologic: Denies dizziness and Denies headache(s) Allergic/Immunologic: Allergic/Immunologic: Denies throat swelling and Denies wheezing [facility] Past Medical History Medical History Sarcoidosis Dx in his 40's, was on prednisone for 18 months and this improved. In remission. Impaired fasting glucose Hyperuricemia GERD (gastroesophageal reflux disease) Essential tremor CKD (chronic kidney disease) Sciatica HTN (hypertension) Family History Family History Father Malignant neoplasm of prostate Lung cancer Mother Diabetes mellitus Heart disease Social History Social History Smoking status: Never smoker Second hand tobacco smoke exposure: No Alcohol intake: former Alcohol use details: 2 beers/week Substance use: never Substance use type: does not use Lack of Transportation: No Lack of Food: Never True Current Housing: I Have Housing Concerned About Future Housing: No Difficulty Paying Gas/Electric Bills: No Difficulty Paying for Meds: No Currently Unemployed: No Education: High School Diploma/GED Difficulty w/ Childcare or Family Care: No Living arrangements: with family Spiritual care concerns: No Meds Home Medications and Allergies Home Medications ?Medication ?Instructions ?Recorded ?Confirmed ?Type allopurinol 100 mg tablet 100 mg PO BID 04/18/21 08/28/25 History carvedilol 25 mg tablet 25 mg PO Q12H 04/18/21 08/28/25 History lovastatin 10 mg tablet 10 mg PO QPM 04/18/21 08/28/25 History rpymoavbulnh-gnw-jprwr acid-vit 1 tablet PO DAILY #1 tablet 04/18/21 08/28/25 Rx K-lycop 400 mcg-20 mcg-370 mcg tablet (Men's 50 Plus Multivitamin) hydralazine 100 mg tablet 100 mg PO BID 07/22/24 08/28/25 History hydrocodone 5 mg-acetaminophen 325 1 tablet PO Q8H PRN pain #20 tabs 06/25/25 08/07/25 Rx mg tablet cyclobenzaprine 15 mg 15 mg PO QPM PRN muscle spasm 07/28/25 08/07/25 History capsule,extended release 24 hr Allergies Allergy/AdvReac Type Severity Reaction Status Date / Time No Known Allergies Allergy Mild Verified 08/28/25 09:09 Vital Signs Vital Signs - 24 hr 08/28/25 09:11 Temperature 97.1 F L Pulse Rate 61 Respiratory Rate 20 Blood Pressure 161/89 H Pulse Oximetry 100 Oxygen Delivery Room Air Exam Const: General: no acute distress and alert Orientation/consciousness: patient oriented x3 HENMT: Head: normocephalic and atraumatic Ears: hearing grossly normal bilaterally Face/Nose/Sinus: Normal nares present Mouth: Yes Normal oral and palatal mucosa present Eyes: Periorbital: periorbital findings normal Sclera: sclerae normal EOM: EOMs intact bilaterally Neck: Neck: normal visual inspection, no lymphadenopathy and trachea midline Chest: Chest palpation & inspection: normal inspection of the chest Resp: Effort & Inspection: normal respiratory effort Auscultation: clear to auscultation bilaterally Cardio: Jugular venous distension: no JVD Rate: regular rate Rhythm: regular rhythm Heart sounds: S1 normal heart sound present and S2 normal heart sound present Peripheral pulses: Peripheral pulses 2+ throughout GI: Inspection: normal to inspection GI Palp: Yes Soft to palpation, No Tenderness to palpation present (GI), No Guarding due to palpation present (GI) and No Rebound tenderness present Percussion: Yes normal to percussion Auscultation: normal bowel sounds : General: Yes no CVA tenderness Back/Spine/Pelvis: Back: no CVA tenderness Neuro: General: patient oriented x3, no focal motor deficits and CN's II-XI intact bilaterally Cognition (Neuro): normal cognition Speech: normal speech Motor exam (neuro): 5/5 motor strength present throughout Extrem: General: capillary refill normal and no clubbing, cyanosis or edema Assessment and Plan Assessment and plan (1) Screening for colorectal cancer: Code(s): Z12.11 - Encounter for screening for malignant neoplasm of colon; Z12.12 - Encounter for screening for malignant neoplasm of rectum Status: Acute Assessment and Plan: I have recommended colonoscopy. I have discussed the procedure, risks, benefits, and alternatives. Questions were answered. Patient is agreeable to proceed.
--- NOTE | 2025-08-28 10:36 | S_PTH ---
PATIENT: Zechariah Jenkins LOC: [facility] U#:[id number] AGE/SX: 69/M ROOM: RE08/28/[address]: Osmar Cabrera DO : 1955 BED: DIS: 08/28/2025 SPEC #: [id number] RECD: 08/28/25 11:58 STATUS: LIZZY RECedric #: [id number] CHELSIE: 08/28/25 10:[address]: Osmar Cabrera DEPT: [facility] Surgical RECD BY: Letty Staples ENTERED: 08/28/25 11:59 SP TYPE: Surgical OTHR DR: Denis Best MD Tissues: A - Colon Polypectomy B - Colon Polypectomy C - Colon Polypectomy Procedures: Hematoxylin and Eosin Stain Gross and Microscopic Level 4
[2025-08-28 10:40] VITALS: BP 149/81; PULSE 83; RESP 18; O2SAT 97
[2025-08-28 10:50] VITALS: BP 137/79; PULSE 75; RESP 18; O2SAT 98
[2025-08-28 11:00] VITALS: BP 149/77; PULSE 73; RESP 25; O2SAT 97
== END 2025-08-28 11:21 | disposition home or self-care (01) ==
PROVIDERS: PCP Internal Medicine; Visit Provider Surgery
PROC: 0DJD8ZZ Inspection of Lower Intestinal Tract, Via Natural or Artificial Opening Endoscopic (ICD-10-PCS; CPT 45378; principal; 2025-08-28 10:00)
DX: Z12.11 Encounter for screening for malignant neoplasm of colon (principal); D12.2 Benign neoplasm of ascending colon; D12.3 Benign neoplasm of transverse colon; D12.4 Benign neoplasm of descending colon; E66.01 Morbid (severe) obesity due to excess calories; Z68.43 Body mass index [BMI] 50.0-59.9, adult
CPT/HCPCS: 45385; 88305; J2003; J2704; J7120